=== PATIENT | female | born 1970 | race Caucasian/White ===

== ENCOUNTER → 2018-04-24 11:41 | Outpatient (CLI) | payer OTHER, MEDICAID, SELFPAY ==
--- NOTE | 2018-04-24 | DI.MG.S_ITS ---
BILATERAL DIGITAL SCREENING MAMMOGRAM 3D/2D WITH CAD: 04/24/2018 CLINICAL: Baseline exam. Routine screening. No prior exams were available for comparison. The tissue of both breasts is heterogeneously dense. This may lower the sensitivity of mammography. Current study was also evaluated with a Computer Aided Detection (CAD) system. No significant masses, calcifications, or other findings are seen in either breast. IMPRESSION: NEGATIVE There is no mammographic evidence of malignancy. A 1 year screening mammogram is recommended. This exam was interpreted at Station ID: [id number]. NOTE: For mammograms, a report in lay terms will be sent to the patient. Approximately 15% of breast malignancies will not be visualized mammographically. In the management of a palpable breast mass, a negative mammogram must not discourage biopsy of a clinically suspicious lesion. Electronically Signed By: Leroy rea/ami:04/24/2018 16:29:46 letter sent: Normal Exam ACR BI-RADS Category 1: Negative [id number]
== END ==
PROVIDERS: PCP Family Medicine; Visit Provider Naturopath
DX: Z12.31 Encounter for screening mammogram for malignant neoplasm of breast (principal)
CPT/HCPCS: 77063; 77067

== ENCOUNTER 2019-08-14 09:30 | Outpatient (RCR) | payer BC, MEDICAID, OTHER, SELFPAY ==
--- NOTE | 2017-06-27 07:44 | ST.OPTN ---
On June 27, 2017 our therapy services consisting of Speech, Occupational, and Physical therapy transitioned from [employer] electronic documentation system to a new [employer] electronic system. All documentation prior to June 27 can be found under [employer] saved data. From June 27 forward, all medical record documentation will be in [employer] 6.1.
--- NOTE | 2018-07-24 11:17 | ST.OPTN ---
Care Team Visit Care Team Role Provider Type Pilar Portillo PA-C Family Provider Non-Staff Primary Care Provider Address: [address], [place], [address] Cassie Tilley PA-C Attending Provider Non-Staff Address: [address], [address], [place], [address] REPAIRER CYLINDER HEADS Treatment Note REPAIRER CYLINDER HEADS Treatment Note Start: 06/27/17 09:38 Freq: Status: Active Protocol: Document 07/17/18 17:18 JUAN LUIS (Rec: 07/18/18 18:30 JUAN LUIS [id number]) Speech Pathology Treatment Note Session Time Visit Start Time 15:30 Visit Stop Time 16:25 Total Visit Minutes 55 Visit Information Visit Number 06/06 Plan of Care Dates 07/17/18 - 10/10/18 Insurance Information [facility] Setting Treatment Setting Outpatient Care Visit Type Note Type Progress Note Next Note Type Next Note Type Treatment Note General Information General Information 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 She was hosptitalized at [facility] ([place], [place]) from August 07-2014; then [facility]) from August 20 - Oct 01, 2014. She received outpatient ST and PT services at [facility] from Nov- Oct 2014, after which she relocated to be closer to family. She returned to [facility] and resuced ST services targeting ongoing mild cognitive deficits on 2016. Subjective Observations/Patient Presentation Pt arrived on time after having received vision therapy in [place]. She was fatigued but able to participate in treatment. She provided the REPAIRER CYLINDER HEADS with a list of ongoing concerns and complaints around memory, attention, word recall, and executive function skills, as well as significant interference from emotions and fatigue in her ability to perform daily and professional tasks. Chief Complaint(s) Language Cognitive Rehab Expectation/Goals: Patient Goals Improve oral expression, cogntive communication skills to return to work Patient Knowledge/Awareness of REPAIRER CYLINDER HEADS Role Excellent in Treatment Parent/Caretake Knowledge/Awareness of Excellent REPAIRER CYLINDER HEADS Role in Treatment Comment HEP inconsistent depending on stress levels from other responsibilities Objective Short Term Goals 1. Complex divided/selective attention tasks w/ 80% acc. 2. Visuospatial tasks of moderate complexity w/ 90% acc . DISCONTINUE; PT SEEKING VISION THERAPY 3. Given information of moderate length in writing and using memory strategies as needed, recall orozco concepts and details after 10-min delay w/ 80% acc. NEW GOAL: Pt will incorporate at least 3 strategies targeted over treatment course (e.g., Time Pressure Management, memory, word-recall strategies ) in 70% of opportunities in her functional environment over duration of 1 month to increase independence and carryover of targets, as measured by pt report and clinician judgment. NEW GOAL: Using stimuli/tasks from within her functional environment, the pt will create 3 exercises reflecting therapeutic goals (e.g., recalling 4 shopping list items using internal memory strategies) to increase independence with HEP and long -term rehabilitation, as measured by pt report and clinician judgment. Half-Way Goals 1. Complete complex visuospatial tasks w/ 80% acc to increase mental flexibility . DISCONTINUE; PT SEEKING VISION THERAPY 2. Perform complex functional selective attention tasks of moderate-high levels of difficulty (e.g., giving instructions to complex tasks) with 80% acc to increase ability to communicate effectively under pressure and return to work as per PLOF. 3. Given info of moderate complexity in writing and using memory strategies as needed, recall orozco concepts and details after 10-min delay w/ 90% acc. 4. The pt will identify at least 3 strategies targeted in treatment that she incorporates into functional activities in 70% or more opportunities to return to PLOF and increase independence of rehabilitation process/ progress. Treatment Activities Consulted with pt RE her concerns. Skilled education and feedback was provided, including review of various strategies and exercises that have been targeted in tx to date to address these and similar challenges. These were outlined orally and in writing, and the pt was highly participatory in the discussion, providing feedback on strengths and weaknesses in following through on them in her functional practice. Instruction was provided in using functional objects and tasks in her home/social environment to create exercises around these skills and to increase her independence in her rehabilitation process. She verbalized understanding of instruction as well as necessity for consistent practice to improve skills. Recommended the pt connect with a TBI support group and network to find another individual with TBI who may provide and benefit from mutual support and accountability to the pt to promote follow-through of HEP targets and carryover of tasks /skills. She was in agreement with this and identified an upcoming [facility] event as an opportunity to initiate this. Assessment Patient Response to Treatment Good Rehab Potential Good Impairments Identified Cognitive-Linguistic Skills Expressive Language Memory - Short Term Memory - Working Receptive Language Progress Towards Goals Slow Progress Assessment of Overall Progress Improving Assessment of Improvement While Deon has progressed in many areas over the course of treatment, she continues to struggle with effects of her TBI in areas of memory, attention, executive function, word recall, and effects of emotions and fatigue. She is easily distracted, has difficulty tracking information in conversations and in daily tasks, and relies heavily on external memory tools. She has been successful in creating daily schedules but not successful in following through on such plans. She is easily overwhelmed by stress, emotions, and fatigue and would benefit from professional mental health counseling. In order to continue rehabilitative progress in light of limited benefits for skilled intervention, independence of practice and ability to create practice tasks from within her functional environment is critical. She would greatly benefit from a support group. She is in agreement with this assessment and these recommendations. She was appreciative of a written list of strategies and exercises that have been targeted over the course of Speech Pathology treatment to help remind and guide her in her home practice . Reviewed with Patient Goals Progress Being Made Home Exercise Program Patient/Caregiver Understanding Excellent Plan Amount of Therapy Recommended 7 Months Comment Once every 4 weeks Length of Session 45 Minutes Treatment Emphasis Next Session Increase independence with home practice Therapeutic Contents Client Education Cognitive-Linguistic Training Expressive Language Training Home Exercise Program Information Processing Reading Comprehension Provided Patient/Caregiver Instruction Home Exercise Program Plan of Care Questions/Concerns Therapy Recommendations Continue with Current Program Suggested Referral Other Other Referrals Psychology; TBI Support Group
--- NOTE | 2018-08-15 17:52 | ST.OPTN ---
Care Team Visit Care Team Role Provider Type Pilar Portillo PA-C Family Provider Non-Staff Primary Care Provider Address: [address], [place], [address] Cassie Tilley PA-C Attending Provider Non-Staff Address: [address], [address], [place], [address] CARBON SETTER Treatment Note CARBON SETTER Treatment Note Start: 06/27/17 09:38 Freq: Status: Active Protocol: Document 08/15/18 17:31 JUAN LUIS (Rec: 08/15/18 17:52 JUAN LUIS [id number]) Speech Pathology Treatment Note Session Time Visit Start Time 13:30 Visit Stop Time 14:25 Total Visit Minutes 55 Visit Information Visit Number 5 Plan of Care Dates 07/17/18 - 10/10/18 Insurance Information [facility] Setting Treatment Setting Outpatient Care Visit Type Note Type Progress Note Next Note Type Next Note Type Treatment Note General Information General Information 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 She was hosptitalized at [facility] ([place], [place]) from August 07-2014; then [facility]) from August 20 - Oct 01, 2014. She received outpatient ST and PT services at [facility] from Nov- Oct 2014, after which she relocated to be closer to family. She returned to [facility] and resuced ST services targeting ongoing mild cognitive deficits on 2016. Subjective Observations/Patient Presentation Pt arrived on time. 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 Specifically, she continues to be easily distracted, leaving tasks incomplete. Chief Complaint(s) Language Cognitive Rehab Expectation/Goals: Patient Goals Improve oral expression, cogntive communication skills to return to work Patient Knowledge/Awareness of CARBON SETTER Role Excellent in Treatment Parent/Caretake Knowledge/Awareness of Excellent CARBON SETTER Role in Treatment Comment HEP inconsistent depending on stress levels from other responsibilities Objective Short Term Goals 1. Complex divided/selective attention tasks w/ 80% acc. 2. Given information of moderate length in writing and using memory strategies as needed, recall orozco concepts and details after 10-min delay w/ 80% acc. 3. Pt will incorporate at least 3 strategies targeted over treatment course (e.g., Time Pressure Management, memory, word-recall strategies ) in 70% of opportunities in her functional environment over duration of 1 month to increase independence and carryover of targets, as measured by pt report and clinician judgment. 4. Using stimuli/tasks from within her functional environment, the pt will create 3 exercises reflecting therapeutic goals (e.g., recalling 4 shopping list items using internal memory strategies) to increase independence with HEP and long -term rehabilitation, as measured by pt report and clinician judgment. Penitentiary Goals 1. Perform complex functional selective attention tasks of moderate-high levels of difficulty (e.g., giving instructions to complex tasks) with 80% acc to increase ability to communicate effectively under pressure and return to work as per PLOF. 2. Given info of moderate complexity in writing and using memory strategies as needed, recall orozco concepts and details after 10-min delay w/ 90% acc. 3. The pt will identify at least 3 strategies targeted in treatment that she incorporates into functional activities in 70% or more opportunities to return to PLOF and increase independence of rehabilitation process/ progress. Treatment Activities Consulted with pt RE her concerns. Skilled education was provided RE cognitive skills required to perform specific tasks and review of HEP tasks that target these skills. Trained pt in N-back memory tasks, visual processing speed and naming tasks. The pt performed concrete (playing card) naming task within normal speeds and 100% accuracy. Given abstract naming task (emotions represented in facial pictures ) and instructions not to repeat the same emotion, she exhibited significantly delayed processing and WFD for synonyms. Accuracy of independent production was 63% , increased to 80% with phonemic cues. Instruction was provided in using functional objects and tasks in her home/social environment to create exercises around these skills and to increase her independence in her rehabilitation process. She verbalized understanding of instruction as well as need for consistent practice to improve skills. Continue to recommend the pt connect with a TBI support group and network to find another individual with TBI who may provide and benefit from mutual support and accountability to the pt to promote follow-through of HEP targets and carryover of tasks /skills. She continues to be in agreement but has not made progress in finding a group that is a reasonable distance from her home. Suggested researching online groups, which this CARBON SETTER will attempt to assist in finding. Assessment Patient Response to Treatment Good Rehab Potential Good Impairments Identified Cognitive-Linguistic Skills Expressive Language Memory - Short Term Memory - Working Receptive Language Progress Towards Goals Slow Progress Assessment of Overall Progress Improving Assessment of Improvement In today's session, Deon exhibited normal naming and visual processing of simple concrete items and significant increased difficulty with abstract stimuli. She was responsive to education regarding therapeutic drill tasks that target specific cognitive skills, as well as information and training in transference of skills to functional tasks and ways to target that in her home practice. While she has progressed in many areas over the course of treatment, she continues to struggle with effects of her TBI in areas of memory, attention, executive function, word recall, and effects of emotions and fatigue. 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 She would benefit from professional mental health counseling and from a TBI support group. She is in agreement with this assessment and these recommendations but struggles to find accessible resources. Continued skilled intervention is medically necessary to increase the pt's independence with rehabilitation tasks, provide ongoing assessment and education to promote carryover of skills from structured therapeutic tasks to less structured functional tasks, and increase her ability to perform tasks necessary to maintain employment and meet her financial needs. Reviewed with Patient Goals Progress Being Made Home Exercise Program Patient/Caregiver Understanding Excellent Plan Amount of Therapy Recommended 6 Months Comment Once every 4 weeks Length of Session 45 Minutes Treatment Emphasis Next Session Increase independence with home practice Therapeutic Contents Client Education Cognitive-Linguistic Training Expressive Language Training Home Exercise Program Information Processing Reading Comprehension Provided Patient/Caregiver Instruction Home Exercise Program Plan of Care Questions/Concerns Therapy Recommendations Continue with Current Program Suggested Referral Other Other Referrals Psychology; TBI Support Group
--- NOTE | 2018-09-26 17:45 | ST.OPTN ---
Care Team Visit Care Team Role Provider Type Pilar Portillo PA-C Family Provider Non-Staff Primary Care Provider Address: [address], [place], [address] Cassie Tilley PA-C Attending Provider Non-Staff Address: [address], [address], [place], [address] LEAD MINER BLASTING Treatment Note LEAD MINER BLASTING Treatment Note Start: 06/27/17 09:38 Freq: Status: Active Protocol: Document 09/24/18 14:57 JUAN LUIS (Rec: 09/24/18 17:49 JUAN LUIS [id number]) Speech Pathology Treatment Note Session Time Visit Start Time 09:32 Visit Stop Time 10:27 Total Visit Minutes 55 Visit Information Visit Number 6 Plan of Care Dates 07/17/18 - 10/10/18 Insurance Information [facility] Setting Treatment Setting Outpatient Care Visit Type Note Type Treatment Note Next Note Type Next Note Type Treatment Note General Information General Information 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 She was hosptitalized at [facility] ([place], [place]) from August 07-2014; then [facility]) from August 20 - Oct 01, 2014. She received outpatient ST and PT services at [facility] from Nov- Oct 2014, after which she relocated to be closer to family. She returned to [facility] and resuced ST services targeting ongoing mild cognitive deficits on 2016. Subjective Observations/Patient Presentation Pt arrived on time. Reported having had mental health assessment last week at [facility], where she is hopeful she will be able to receive Cognitive Behavioral Therapy as well as medicine management. She reported a change in her medications by the Psychologist she met with and that she is experiencing positive results in areas of motivation and organization. She expressed a strong desire to continue Speech Pathology intervention targeting setting and following through on routine and schedule, as she feels with new medicine regimine she may be more successful in past. Chief Complaint(s) Language Cognitive Rehab Expectation/Goals: Patient Goals Improve oral expression, cogntive communication skills to return to work Patient Knowledge/Awareness of LEAD MINER BLASTING Role Excellent in Treatment Parent/Caretake Knowledge/Awareness of Excellent LEAD MINER BLASTING Role in Treatment Comment HEP inconsistent depending on stress levels from other responsibilities Objective Short Term Goals 1. Complex divided/selective attention tasks w/ 80% acc. 2. Given information of moderate length in writing and using memory strategies as needed, recall orozco concepts and details after 10-min delay w/ 80% acc. 3. Pt will incorporate at least 3 strategies targeted over treatment course (e.g., schedule management, memory, word-recall strategies) in 70% of opportunities in her functional environment over duration of 1 month to increase independence and carryover of targets, as measured by pt report and clinician judgment. 4. Using stimuli/tasks from within her functional environment, the pt will create 3 exercises reflecting therapeutic goals (e.g., recalling 4 shopping list items using internal memory strategies) to increase independence with HEP and long -term rehabilitation, as measured by pt report and clinician judgment. Health Underwriter Goals 1. Perform complex functional selective attention tasks of moderate-high levels of difficulty (e.g., giving instructions to complex tasks) with 80% acc to increase ability to communicate effectively under pressure and return to work as per PLOF. 2. Given info of moderate complexity in writing and using memory strategies as needed, recall orozco concepts and details after 10-min delay w/ 90% acc. 3. The pt will identify at least 3 strategies targeted in treatment that she incorporates into functional activities in 70% or more opportunities to return to PLOF and increase independence of rehabilitation process/ progress. Treatment Activities Re-education and training provided in strategies to establish and adhere to daily routines and schedule to increase management of personal and professional responsibilities. Given the SMART goal setting tool ( Specific, Measurable, Attainable, Realistic, Timely) , the pt established 2 goals related to setting and keeping a daily routine of tracking/ managing responsibilities as well as emotional levels/ responses that may support or interfere with her ability to adhere to the schedule. Agreed the pt would report via email to the Clinician 2x/wk with her progress of following daily routine via submittal of tracking template in order to increase accountability, follow-through, and carryover. Assessment Patient Response to Treatment Good Rehab Potential Good Impairments Identified Cognitive-Linguistic Skills Expressive Language Memory - Short Term Memory - Working Receptive Language Progress Towards Goals Slow Progress Assessment of Overall Progress Improving Assessment of Improvement The pt reported improvement in motivation and completion of tasks important to her (e.g., completing Physical Therapy exercises and engaging in her community) with recent changes in medication. She also exhibits increased motivation to resume skilled intervention targeting establishing and following through on daily schedule/routine, which are foundational to improve her abilty to manage multiple responsibilities and gain/ maintain independence and resume professional responsibilities. 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 Reviewed with Patient Goals Progress Being Made Home Exercise Program Patient/Caregiver Understanding Excellent Plan Amount of Therapy Recommended 6 Months Comment Once every 4 weeks Length of Session 45 Minutes Treatment Emphasis Next Session Increase independence with home practice Therapeutic Contents Client Education Cognitive-Linguistic Training Expressive Language Training Home Exercise Program Information Processing Reading Comprehension Provided Patient/Caregiver Instruction Home Exercise Program Plan of Care Questions/Concerns Therapy Recommendations Continue with Current Program Suggested Referral Other Other Referrals Psychology; TBI Support Group
--- NOTE | 2018-10-30 14:26 | ST.OPTN ---
Visit Care Team Role Provider Type Pilar Portillo PA-C Family Provider Non-Staff Primary Care Provider Address: [address], [place], [address] Cassie Tilley PA-C Attending Provider Non-Staff Address: [address], [address], [place], [address] IT INVESTMENT/PORTFOLIO MANAGER Treatment Note IT INVESTMENT/PORTFOLIO MANAGER Treatment Note Start: 06/27/17 09:38 Freq: Status: Active Protocol: Document 10/30/18 13:38 JUAN LUIS (Rec: 10/30/18 14:26 JUAN LUIS [email or web address]) Speech Pathology Treatment Note Session Time Visit Start Time 09:30 Visit Stop Time 10:22 Total Visit Minutes 52 Visit Information Visit Number 7 Plan of Care Dates 10/30/18 - 04/30/19 Insurance Information [facility] Setting Treatment Setting Outpatient Care Visit Type Note Type Treatment Note Next Note Type Next Note Type Treatment Note General Information General Information 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 She was hosptitalized at [facility] ([place], [place]) from August 07-2014; then [facility]) from August 20 - Oct 01, 2014. She received outpatient ST and PT services at [facility] from Nov- Oct 2014, after which she relocated to be closer to [facility] She returned to [facility] and resuced ST services targeting ongoing mild cognitive deficits on 2016. Subjective Observations/Patient Presentation Pt arrived on time. She continues to be seen for mental health therapy/ medication management at [facility]. She is also receiving counseling on [facility], and she expressed being very happy with this new therapist. 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 Chief Complaint(s) Language,Cognitive Rehab Expectation/Goals: Patient Goals Improve oral expression, cogntive communication skills to return to work Patient Knowledge/Awareness of IT INVESTMENT/PORTFOLIO MANAGER Role Excellent in Treatment Parent/Caretake Knowledge/Awareness of Excellent IT INVESTMENT/PORTFOLIO MANAGER Role in Treatment Comment HEP inconsistent depending on stress levels from other responsibilities Objective Short Term Goals 1. Complex divided/selective attention tasks w/ 80% acc. 2. Given information of moderate length in writing and using memory strategies as needed, recall orozco concepts and details after 10-min delay w/ 80% acc. 3. Pt will incorporate at least 3 strategies targeted over treatment course (e.g., schedule management, memory, word-recall strategies) in 70% of opportunities in her functional environment over duration of 1 month to increase independence and carryover of targets, as measured by pt report and clinician judgment. 4. Using stimuli/tasks from within her functional environment, the pt will create 3 exercises reflecting therapeutic goals (e.g., recalling 4 shopping list items using internal memory strategies) to increase independence with HEP and long -term rehabilitation, as measured by pt report and clinician judgment. Lan/Wan Engineer Goals 1. Perform complex functional selective attention tasks of moderate-high levels of difficulty (e.g., giving instructions to complex tasks) with 80% acc to increase ability to communicate effectively under pressure and return to work as per PLOF. 2. Given info of moderate complexity in writing and using memory strategies as needed, recall orozco concepts and details after 10-min delay w/ 90% acc. 3. The pt will identify at least 3 strategies targeted in treatment that she incorporates into functional activities in 70% or more opportunities to return to PLOF and increase independence of rehabilitation process/ progress. Treatment Activities Scheduling: Deon presented a daily journal in which she has rated her ability to set and follow-through on a daily schedule with 75% accuracy. Days in which she did not complete the journal were noted with Practice, which she reported represented days in which she was too tired and overwhelmed by soccer practice to complete the journal. 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 Next, she identified areas of ongoing challenge. Given 2 consistently challenging situations identified by the pt (i.e., navigating unexpected conversations with coaching staff and having word -finding difficulties while talking to her team), Deon identified current thought patterns and/or actions that frequently occur in these situations that have perpetuated, rather than reduced, the cognitive challenges. Trained pt in methods of reframing thoughts to reduce interfering negative self-talk and actions that draw attention to her TBI deficits vs the situation at hand. Then trained pt in developing go- to statements which she can practice and use in the moment to navigate such situations more efficiently and effectively without drawing unnecessary attention to her TBI deficits, which she feels undermine her authority and ability to perform her job. Given this training, Deon developed 2 go-to statements to stay on-task with her coaches. Skilled feedback and education RE the need to incorporate this exercise into her HEP was provided. She verbalized understanding and intention to complete this problem-solving task 1-2x/wk. Assessment Patient Response to Treatment Good Rehab Potential Good Impairments Identified Cognitive-Linguistic Skills, Expressive Language,Memory - Short Term,Memory - Working, Receptive Language Progress Towards Goals Slow Progress Assessment of Overall Progress Improving Assessment of Improvement Deon is successfully employing problem-solving strategies, including setting clear boundaries with and delegating tasks to her pharmacy innovation assistant coaches. 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 Additionally, she is making progress in setting and following through on daily schedules. Fatigue and increased cognitive loads continue to impact her ability to complete these tasks. Word-finding difficulties and unexpected complex conversations continue to occur in the moment and interfere with Deon's ability to carry out planned tasks. She was responsive to ongoing development of problem-solving strategies to assist in managing these [id number] moment situations and to reduce her tendency to draw attention to her brain injury. 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 Reviewed with Patient Goals,Progress Being Made,Home Exercise Program Patient/Caregiver Understanding Excellent Plan Comment Once every 4 weeks Therapeutic Contents Client Education,Cognitive- Linguistic Training,Expressive Language Training,Home Exercise Program,Information Processing,Reading Comprehension Provided Patient/Caregiver Instruction Home Exercise Program,Plan of Care,Questions/Concerns Therapy Recommendations Continue with Current Program Suggested Referral Other Other Referrals Psychology; TBI Support Group
--- NOTE | 2018-12-12 17:02 | ST.OPTN ---
Visit Care Team Role Provider Type Pilar Portillo PA-C Family Provider Non-Staff Primary Care Provider Address: [address], [place], [address] Cassie Tilley PA-C Attending Provider Non-Staff Address: [address], [address], [place], [address] STOCK BROKER Treatment Note STOCK BROKER Treatment Note Start: 06/27/17 09:38 Freq: Status: Active Protocol: Document 12/12/18 16:42 JUAN LUIS (Rec: 12/12/18 17:02 JUAN LUIS [id number]) Speech Pathology Treatment Note Session Time Visit Start Time 09:30 Visit Stop Time 10:40 Total Visit Minutes 40 Visit Information Visit Number 8 Plan of Care Dates 10/30/18 - 04/30/19 Insurance Information [facility] Setting Treatment Setting Outpatient Care Visit Type Note Type Treatment Note Next Note Type Next Note Type Treatment Note General Information General Information 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 She was hosptitalized at [facility] ([place], [place]) from August 07-2014; then [facility]) from August 20 - Oct 01, 2014. She received outpatient ST and PT services at [facility] from Nov- Oct 2014, after which she relocated to be closer to hospital for behavioral medicine. She returned to [facility] and resuced ST services targeting ongoing mild cognitive deficits on 2016. Subjective Observations/Patient Presentation Pt arrived on time and left 5 min early to catch [place] ferry. She continues to be seen for psychiatric medication management at [facility] but is not entirely happy there and is considering obtaining second opinion about medication choices. She is also receiving counseling on [facility] she expressed being very happy with this therapist, whom she sees 3x/mo. Deon reported multiple major life events occurring within the last 2 months including deaths of close friends and family, marriages of family members, and births within her [place] of close friends. These events have resulted in frequent travel for her and have been a source of extreme emotional challenges. She reported significant challenge managing emotions, energy, decision making, and motivation to participate with many aspects of life including exercise, housekeeping, etc. Primarily Deon expressed a sense of deep grief. Chief Complaint(s) Language,Cognitive Rehab Expectation/Goals: Patient Goals Improve oral expression, cogntive communication skills to return to work Patient Knowledge/Awareness of STOCK BROKER Role Excellent in Treatment Parent/Caretake Knowledge/Awareness of Excellent STOCK BROKER Role in Treatment Comment HEP inconsistent depending on stress levels from other responsibilities Objective Short Term Goals 1. Complex divided/selective attention tasks w/ 80% acc. 2. Given information of moderate length in writing and using memory strategies as needed, recall orozco concepts and details after 10-min delay w/ 80% acc. 3. Pt will incorporate at least 3 strategies targeted over treatment course (e.g., schedule management, memory, word-recall strategies) in 70% of opportunities in her functional environment over duration of 1 month to increase independence and carryover of targets, as measured by pt report and clinician judgment. 4. Using stimuli/tasks from within her functional environment, the pt will create 3 exercises reflecting therapeutic goals (e.g., recalling 4 shopping list items using internal memory strategies) to increase independence with HEP and long -term rehabilitation, as measured by pt report and clinician judgment. Sternman Goals 1. Perform complex functional selective attention tasks of moderate-high levels of difficulty (e.g., giving instructions to complex tasks) with 80% acc to increase ability to communicate effectively under pressure and return to work as per PLOF. 2. Given info of moderate complexity in writing and using memory strategies as needed, recall orozco concepts and details after 10-min delay w/ 90% acc. 3. The pt will identify at least 3 strategies targeted in treatment that she incorporates into functional activities in 70% or more opportunities to return to PLOF and increase independence of rehabilitation process/ progress. Treatment Activities Reviewed targets of tx from last session. Deon reported limited follow-through secondary to recent life events outlined above. 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 Tomorrow is the next game, and she expressed intention to follow up with appropriate personnel to ensure changes are implemented. Skilled feedback and education was provided with recommendations for modification of tx targets from last session. Agreed to simplify task to daily identification of one goal per day with accountability to STOCK BROKER 4x/wk via a simple text indicating whether or not she had followed through. The goal of this modification is to keep the pt on task with treatment targets/goals of developing and managing her daily schedule without increasing stress and feelings of overwhelm during this time when she is grieving and attempting to manage her emotions in the presence of so many life changes. Assessment Patient Response to Treatment Good Rehab Potential Good Impairments Identified Cognitive-Linguistic Skills, Expressive Language,Memory - Short Term,Memory - Working, Receptive Language Progress Towards Goals Slow Progress,Delayed Progress Assessment of Overall Progress Improving Assessment of Improvement Deon is successfully employing problem-solving strategies, including setting clear boundaries with soccer staff and identifying and mitigating environmental distractors in order to perform her professional responsibilities. She has experienced a set-back in progress RE setting and following through on daily schedules d/t multiple major life events. Fatigue and increased emotional loads continue to impact her ability to complete these tasks. She continues to work with mental health professionals to manage emotions. No significant progress in developing go-to statements to aid with WFD; however, Deon did express increased ability to stop and give herself time to find words as opposed to making statements that draw attention to effects of TBI, which is good progress. Reviewed with Patient Goals,Progress Being Made,Home Exercise Program Patient/Caregiver Understanding Excellent Plan Comment Once every 4 weeks Treatment Emphasis Next Session Follow-up on go-to statements to reduce WFD; daily schedule. Therapeutic Contents Client Education,Cognitive- Linguistic Training,Expressive Language Training,Home Exercise Program,Information Processing,Reading Comprehension Provided Patient/Caregiver Instruction Home Exercise Program,Plan of Care,Questions/Concerns Therapy Recommendations Continue with Current Program Suggested Referral Other Other Referrals Psychology; TBI Support Group
--- NOTE | 2019-01-02 11:41 | ST.OPTN ---
Visit Care Team Role Provider Type Pilar Portillo PA-C Family Provider Non-Staff Primary Care Provider Address: [address], [place], [address] Cassie Tilley PA-C Attending Provider Non-Staff Address: [address], [address], [place], [address] AIRLINE CAPTAIN Treatment Note AIRLINE CAPTAIN Treatment Note Start: 06/27/17 09:38 Freq: Status: Active Protocol: Document 01/01/19 10:52 JUAN LUIS (Rec: 01/02/19 11:41 JUAN LUIS [id number]) Speech Pathology Treatment Note Session Time Visit Start Time 12:30 Visit Stop Time 13:20 Total Visit Minutes 50 Visit Information Visit Number 9 Plan of Care Dates 10/30/18 - 04/30/19 Insurance Information [facility] Setting Treatment Setting Outpatient Care Visit Type Note Type Treatment Note Next Note Type Next Note Type Treatment Note General Information General Information 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 She was hosptitalized at [facility] ([place], [place]) from August 07-2014; then [facility]) from August 20 - Oct 01, 2014. She received outpatient ST and PT services at [facility] from Nov- Oct 2014, after which she relocated to be closer to family. She returned to [facility] and resuced ST services targeting ongoing mild cognitive deficits on 2016. Subjective Observations/Patient Presentation Pt arrived on time. Reported end of soccer season and expectation for stress levels to decline, allowing her to focus more attention on other aspects of life and work. Chief Complaint(s) Language,Cognitive Rehab Expectation/Goals: Patient Goals Improve oral expression, cogntive communication skills to return to work Patient Knowledge/Awareness of AIRLINE CAPTAIN Role Excellent in Treatment Parent/Caretake Knowledge/Awareness of Excellent AIRLINE CAPTAIN Role in Treatment Comment HEP inconsistent depending on stress levels from other responsibilities Objective Short Term Goals 1. Complex divided/selective attention tasks w/ 80% acc. 2. Given information of moderate length in writing and using memory strategies as needed, recall orozco concepts and details after 10-min delay w/ 80% acc. 3. Pt will incorporate at least 3 strategies targeted over treatment course (e.g., schedule management, memory, word-recall strategies) in 70% of opportunities in her functional environment over duration of 1 month to increase independence and carryover of targets, as measured by pt report and clinician judgment. 4. Using stimuli/tasks from within her functional environment, the pt will create 3 exercises reflecting therapeutic goals (e.g., recalling 4 shopping list items using internal memory strategies) to increase independence with HEP and long -term rehabilitation, as measured by pt report and clinician judgment. Nursing Home Goals 1. Perform complex functional selective attention tasks of moderate-high levels of difficulty (e.g., giving instructions to complex tasks) with 80% acc to increase ability to communicate effectively under pressure and return to work as per PLOF. 2. Given info of moderate complexity in writing and using memory strategies as needed, recall orozco concepts and details after 10-min delay w/ 90% acc. 3. The pt will identify at least 3 strategies targeted in treatment that she incorporates into functional activities in 70% or more opportunities to return to PLOF and increase independence of rehabilitation process/ progress. Treatment Activities Consulted with pt RE treatment goals. Deon reported that she continues to effectively employ word recall strategies and establishing boundaries with others. Compliance with HEP task established at last session related to setting and managing her schedule has been ~45% consistency; will continue this task to increase consistency and carryover of schedule management strategies . Deon reported continuing with difficulty reading, which she attributes to vision deficits that make it difficult to accurately see and attend to written text. This would best be addressed by Opthamologist/ Vision Therapist, which is recommended but for which the pt has limited insurance benefits and financial resources. Deon reported improved ability over last 6 or more months to manage external distractors which enable her to better complete functional tasks. However, she continues to struggle with selective and divided attention when in the presence of auditory and visual distractors which she cannot control. Skilled education was provided RE principles of neuroplasticity as related to need for home practice and goals aimed at increasing Deon's independence with her cognitive rehab. Instruction was provided RE recognizing and/or independently creating exercises targeting tx goals. Deon identified 3 functional tasks that require selective/ divided attention and/or reading. With min verbal prompts, she identified 2 ways in which she could increase the challenge in these tasks in order to improve skills. Feedback was provided. Deon reported that follow-through continues to be her biggest challenge and is typically interfered with by fatigue, stress or emotions. Emphasized to the pt the necessity of follow-through to make gains in cognitive rehab. She verbalized understanding. Assessment Patient Response to Treatment Good Rehab Potential Good Impairments Identified Cognitive-Linguistic Skills, Expressive Language,Memory - Short Term,Memory - Working, Receptive Language Progress Towards Goals Slow Progress,Delayed Progress Assessment of Overall Progress Improving Assessment of Improvement Progress is being made in integration of treatment targets/strategies into functional tasks. Deon demonstrated understanding of ways in which to create cognitive exercises from daily activities to increase her independence in the ongoing rehabilitation process. Her greatest area of challenge remains setting and following through on her daily schedule. She verbalized understanding of the importance of this to continue both cognitive rehab and skilled intervention. Reviewed with Patient Goals,Progress Being Made,Home Exercise Program Patient/Caregiver Understanding Excellent Plan Comment Once every 4 weeks Therapeutic Contents Client Education,Cognitive- Linguistic Training,Expressive Language Training,Home Exercise Program,Information Processing,Reading Comprehension Provided Patient/Caregiver Instruction Home Exercise Program,Plan of Care,Questions/Concerns Therapy Recommendations Continue with Current Program Suggested Referral Other Other Referrals Psychology; TBI Support Group
--- NOTE | 2019-01-30 17:12 | ST.OPTN ---
Visit Care Team Role Provider Type Pilar Portillo PA-C Family Provider Non-Staff Primary Care Provider Address: [address], [place], [address] Cassie Tilley PA-C Attending Provider Non-Staff Address: [address], [address], [place], [address] ELEVATOR OPERATOR SERVICE Treatment Note ELEVATOR OPERATOR SERVICE Treatment Note Start: 06/27/17 09:38 Freq: Status: Active Protocol: Document 01/30/19 12:15 JUAN LUIS (Rec: 01/30/19 12:40 JUAN LUIS [id number]) Speech Pathology Treatment Note Session Time Visit Start Time 09:25 Visit Stop Time 10:10 Total Visit Minutes 45 Visit Information Visit Number 10 Plan of Care Dates 10/30/18 - 04/30/19 Insurance Information 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 She was hosptitalized at [facility] ([place], [place]) from August 07-2014; then [facility]) from August 20 - Oct 01, 2014. She received outpatient ST and PT services at [facility] from Nov- Oct 2014, after which she relocated to be closer to family. She returned to [facility] and resuced ST services targeting ongoing mild cognitive deficits on 2016. Subjective Observations/Patient Presentation Pt arrived on time. Reported difficulty managing interruptions during conversation as they distract her from the original topic. Chief Complaint(s) Language,Cognitive Rehab Expectation/Goals: Patient Goals Improve oral expression, cogntive communication skills to return to work Patient Knowledge/Awareness of ELEVATOR OPERATOR SERVICE Role Excellent in Treatment Parent/Caretake Knowledge/Awareness of Excellent ELEVATOR OPERATOR SERVICE Role in Treatment Comment HEP inconsistent depending on stress levels from other responsibilities Objective Short Term Goals 1. Complex divided/selective attention tasks w/ 80% acc. 2. Given information of moderate length in writing and using memory strategies as needed, recall orozco concepts and details after 10-min delay w/ 80% acc. 3. Pt will incorporate at least 3 strategies targeted over treatment course (e.g., schedule management, memory, word-recall strategies) in 70% of opportunities in her functional environment over duration of 1 month to increase independence and carryover of targets, as measured by pt report and clinician judgment. 4. Using stimuli/tasks from within her functional environment, the pt will create 3 exercises reflecting therapeutic goals (e.g., recalling 4 shopping list items using internal memory strategies) to increase independence with HEP and long -term rehabilitation, as measured by pt report and clinician judgment. Criminal Attorney Goals 1. Perform complex functional selective attention tasks of moderate-high levels of difficulty (e.g., giving instructions to complex tasks) with 80% acc to increase ability to communicate effectively under pressure and return to work as per PLOF. 2. Given info of moderate complexity in writing and using memory strategies as needed, recall orozco concepts and details after 10-min delay w/ 90% acc. 3. The pt will identify at least 3 strategies targeted in treatment that she incorporates into functional activities in 70% or more opportunities to return to PLOF and increase independence of rehabilitation process/ progress. Treatment Activities Daily Schedule: The pt has been tracking her daily progress in setting one essential daily goal and completing it. She has consistently completed these tasks, as demonstrated by a daily journal. Mental flexibility: Pt completed Stroop test improving from 6 correct items to 20 correct items in 60 sec . She completed Color Match task via [employer] cognitive training albert with 88-94% accuracy. Skilled feedback provided RE alternating attention and mental flexibility in conversations containing interruptions. Discussed developing go-to statements to pragmatically stop interruptions before they derail the pt's thought process. Deon stated that her responses to others have sometimes resulted in others refraining from further interaction. She was responsive to developing statements ahead of time in order to manage the situation respectfully to conversation partners while preventing her from feeling the pressure to respond spontaneously. Education/feedback also provided RE neuroplasticity and need for exposure to stimuli to improve cognitive skills. Deon indicated that, now that soccer season is over , she does not interract with others very much and mostly stays home. Recommended choosing social interractions 2-3x/wk in order to maintain and/or improve interpersonal and cognitive skills, particularly tracking conversation and attention skills. Further recommended reading and completion of cognitive training exercises via apps (e.g., [employer], [employer]), as well as continuing to plan and track adherence to daily schedule. She verbalized understanding and agreement. Assessment Patient Response to Treatment Good Rehab Potential Good Impairments Identified Cognitive-Linguistic Skills, Expressive Language,Memory - Short Term,Memory - Working, Receptive Language Progress Towards Goals Slow Progress,Delayed Progress Assessment of Overall Progress Improving Assessment of Improvement Deon is improving in establishing and following through on a daily schedule. Will continue task of daily tracking to promote good carryover and establishing habits. Deon exhibited initial difficulty with Stroop test but improved accuracy rapidly. She demonstrated strong mental flexibility with additional structured therapeutic tasks, which is not uncommon for her. Per ELEVATOR OPERATOR SERVICE observations and pt reports, Deon has greater difficulty with mental flexibility during functional tasks that involve interaction with others, which she tends to avoid for that reason. She was receptive to feedback reviewing strategies previously targeted in treatment and verbalized understanding of their goals and relation to principles of neuroplasticity. Reviewed with Patient Goals,Progress Being Made,Home Exercise Program Patient/Caregiver Understanding Excellent Plan Comment Once every 4 weeks Therapeutic Contents Client Education,Cognitive- Linguistic Training,Expressive Language Training,Home Exercise Program,Information Processing,Reading Comprehension Provided Patient/Caregiver Instruction Home Exercise Program,Plan of Care,Questions/Concerns Therapy Recommendations Continue with Current Program Suggested Referral Other Other Referrals Psychology; TBI Support Group
--- NOTE | 2019-02-14 11:28 | ST.OPTN ---
Visit Care Team Role Provider Type Pilar Portillo PA-C Family Provider Non-Staff Primary Care Provider Address: [address], [place], [address] Cassie Tilley PA-C Attending Provider Non-Staff Address: [address], [address], [place], [address] CPHT Treatment Note CPHT Treatment Note Start: 06/27/17 09:38 Freq: Status: Active Protocol: Document 02/14/19 10:52 JUAN LUIS (Rec: 02/14/19 11:28 JUAN LUIS [id number]) Speech Pathology Treatment Note Session Time Visit Start Time 09:25 Visit Stop Time 10:10 Total Visit Minutes 45 Visit Information Visit Number 11 Plan of Care Dates 10/30/18 - 04/30/19 Insurance Information [facility] Setting Treatment Setting Outpatient Care Visit Type Note Type Treatment Note Next Note Type Next Note Type Treatment Note General Information General Information 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 She was hosptitalized at [facility] ([place], [place]) from August 07-2014; then [facility]) from August 20 - Oct 01, 2014. She received outpatient ST and PT services at [facility] from Nov- Oct 2014, after which she relocated to be closer to [facility]. She returned to [facility] and resuced ST services targeting ongoing mild cognitive deficits on 2016. Subjective Observations/Patient Presentation Pt arrived on time. She brought notes related to her current daily schedule and her goals around this. She reported that she has not been sleeping well, sometimes awake until 3-4:00 in the morning, and has had poor appetite resulting in primarily snacking minimally throughout the day. She expressed concern that she is not eating enough and suspects both sleep and appetite changes may be medication side effects. She stated she is working with her doctor on these issues. Chief Complaint(s) Language,Cognitive Rehab Expectation/Goals: Patient Goals Improve oral expression, cogntive communication skills to return to work Patient Knowledge/Awareness of CPHT Role Excellent in Treatment Parent/Caretake Knowledge/Awareness of Excellent CPHT Role in Treatment Comment HEP inconsistent depending on stress levels from other responsibilities Objective Short Term Goals 1. Complex divided/selective attention tasks w/ 80% acc. 2. Given information of moderate length in writing and using memory strategies as needed, recall orozco concepts and details after 10-min delay w/ 80% acc. 3. Pt will incorporate at least 3 strategies targeted over treatment course (e.g., schedule management, memory, word-recall strategies) in 70% of opportunities in her functional environment over duration of 1 month to increase independence and carryover of targets, as measured by pt report and clinician judgment. 4. Using stimuli/tasks from within her functional environment, the pt will create 3 exercises reflecting therapeutic goals (e.g., recalling 4 shopping list items using internal memory strategies) to increase independence with HEP and long -term rehabilitation, as measured by pt report and clinician judgment. Senior Care Goals 1. Perform complex functional selective attention tasks of moderate-high levels of difficulty (e.g., giving instructions to complex tasks) with 80% acc to increase ability to communicate effectively under pressure and return to work as per PLOF. 2. Given info of moderate complexity in writing and using memory strategies as needed, recall orozco concepts and details after 10-min delay w/ 90% acc. 3. The pt will identify at least 3 strategies targeted in treatment that she incorporates into functional activities in 70% or more opportunities to return to PLOF and increase independence of rehabilitation process/ progress. Treatment Activities Daily Schedule: The pt has been tracking her daily progress in setting one essential daily goal and completing it. She has consistently completed these tasks, as demonstrated by a daily journal. Collaborated with pt to advance managing her daily schedule by setting and completing 2 activities/ per day. Agreed to target start and end of day activities with goal of 85% completion (~6/7 days/wk): Pt will get up at 6:00 am when she has had a good night's sleep and no later than 9:00 am when she has not slept well overnight; Pt will be in bed by 9:45 each night. The pt will continue to track progress with a daily journal. After the pt has demonstrated compliance/consistency with this schedule for at least 2 consecutive weeks, plan to add consuming 1 complete and healthy meal to the schedule in order to advance daily routines in small increments to prevent feelings of overwhelm and to promote pt success. Attention Skills: Since last session, the pt has incorporated Stroop test into HEP and has advanced to >50 correct items in 60 seconds across 6 color/word choices. She reported observing distractors (e.g., emotions [ excitement, frustration], focusing on the future [i.e., focusing attn on goal vs current function], and environmental activities) and using self-talk strategies to ignore them and stay present with the task, both mentally and physically. Skilled feedback and education was provided RE focused, selective and divided attention skills at play in this task, and carry over of these skills and her observations and strategies to functional tasks . When asked to choose a functional task of importance but which is challenging for her to focus on, the chose art work and activities around her spiritual life. Instructed pt to incorporate either an art project or a spiritual task into her HEP in the same way she has incorporated the Stroop test: observe distractors and use self-talk to maintain presence with/ attention to task. Expressive/Receptive Communication: The pt expressed and demonstrated difficulty understanding instructions for assigned attention task. When attempting to explain her difficulties with understanding, she exhibited significant decline in word recall and formulating sentences to express these abstract concepts, resulting in repetitive incomplete statements and dysfluent speech. She benefited from CPHT intervention and prompts to take a deep breath, let go of technical/clinical language that was not important but which appeared to be adding to the confusion, and from visual presentation of instructions (i.e., a written/ visual diagram of observations and strategies made in Stroop test and same goals for art/ spiritual task). Given this re -presentation of instructions, the pt verbalized understanding and she resumed speech/language that was WNL. Assessment Patient Response to Treatment Good Rehab Potential Good Impairments Identified Cognitive-Linguistic Skills, Expressive Language,Memory - Short Term,Memory - Working, Receptive Language Progress Towards Goals Slow Progress,Delayed Progress Assessment of Overall Progress Improving Assessment of Improvement Deon is improving in establishing and following through on a daily schedule and was participatory in establishing new and realistic goals toward advancing her ability to set/manage a more complex daily routine. She has made excellent progress in completing complex levels of Stroop test, which she finds to be an enjoyable challenge. She has made excellent observations of distractors while completing this task, as well as effective strategies to maintain and improve focus and task accuracy. She was receptive to feedback and instruction for tasks to carry over these same skills to functional activities when presented in visual format with simple oral instruction. When presented orally only, she exhibited significant impairment of auditory comprehension and became agitated and unable to orally explain what she did not understand and needed clarification about, requiring CPHT intervention. This demonstrated the pt's ongoing deficits in expressive/ receptive communication skills with abstract and complex topics, particularly when unfamiliar vocabulary is presented to her, and detrimental impacts of hightened emotions to her completion of functional communication tasks. She was responsive to skilled intervention; however, she was not able to self-manage the episode and is unlikely to recieve the necessary support or intervention from lay persons with whom she interacts in ADLs. This demonstrates her medical need for continued skilled intervention. Reviewed with Patient Goals,Progress Being Made,Home Exercise Program Patient/Caregiver Understanding Excellent Plan Comment Once every 4 weeks Therapeutic Contents Client Education,Cognitive- Linguistic Training,Expressive Language Training,Home Exercise Program,Information Processing,Reading Comprehension Provided Patient/Caregiver Instruction Home Exercise Program,Plan of Care,Questions/Concerns Therapy Recommendations Continue with Current Program Suggested Referral Other Other Referrals Psychology; TBI Support Group
--- NOTE | 2019-03-24 16:58 | ST.OPTN ---
Visit Care Team Role Provider Type Pilar Portillo PA-C Family Provider Non-Staff Primary Care Provider Address: [address], [place], [address] Cassie Tilley PA-C Attending Provider Non-Staff Address: [address], [address], [place], [address] CUTTING AND CREASING PRESS OPERATOR Treatment Note CUTTING AND CREASING PRESS OPERATOR Treatment Note Start: 06/27/17 09:38 Freq: Status: Active Protocol: Document 03/20/19 16:41 JUAN LUIS (Rec: 03/24/19 16:58 JUAN LUIS [id number]) Speech Pathology Treatment Note Session Time Visit Start Time 09:35 Visit Stop Time 10:20 Total Visit Minutes 45 Visit Information Visit Number 12 Plan of Care Dates 10/30/18 - 04/30/19 Insurance Information [facility] Setting Treatment Setting Outpatient Care Visit Type Note Type Treatment Note Next Note Type Next Note Type Treatment Note General Information General Information 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 She was hosptitalized at [facility] ([place], [place]) from August 07-2014; then [facility]) from August 20 - Oct 01, 2014. She received outpatient ST and PT services at [facility] from Nov- Oct 2014, after which she relocated to be [facility]. She returned to [facility] and resuced ST services targeting ongoing mild cognitive deficits on 2016. Subjective Observations/Patient Presentation Pt arrived on time. She brought notes related to her current daily schedule and her goals around this. She reported that she been sleeping better and improving on being consistent with scheduled times to go to bed and to awake, although some inconsistency still occurs. She informed of continued difficulty managing her time/ tasks throughout the day when she is only accountable to herself. She successfully manages time/tasks for which she is accountable to others. Chief Complaint(s) Language,Cognitive Rehab Expectation/Goals: Patient Goals Improve oral expression, cogntive communication skills to return to work Patient Knowledge/Awareness of CUTTING AND CREASING PRESS OPERATOR Role Excellent in Treatment Parent/Caretake Knowledge/Awareness of Excellent CUTTING AND CREASING PRESS OPERATOR Role in Treatment Comment HEP inconsistent depending on stress levels from other responsibilities Objective Short Term Goals 1. Complex divided/selective attention tasks w/ 80% acc. 2. Given information of moderate length in writing and using memory strategies as needed, recall orozco concepts and details after 10-min delay w/ 80% acc. 3. Pt will incorporate at least 3 strategies targeted over treatment course (e.g., schedule management, memory, word-recall strategies) in 70% of opportunities in her functional environment over duration of 1 month to increase independence and carryover of targets, as measured by pt report and clinician judgment. 4. Using stimuli/tasks from within her functional environment, the pt will create 3 exercises reflecting therapeutic goals (e.g., recalling 4 shopping list items using internal memory strategies) to increase independence with HEP and long -term rehabilitation, as measured by pt report and clinician judgment. Prison Goals 1. Perform complex functional selective attention tasks of moderate-high levels of difficulty (e.g., giving instructions to complex tasks) with 80% acc to increase ability to communicate effectively under pressure and return to work as per PLOF. 2. Given info of moderate complexity in writing and using memory strategies as needed, recall orozco concepts and details after 10-min delay w/ 90% acc. 3. The pt will identify at least 3 strategies targeted in treatment that she incorporates into functional activities in 70% or more opportunities to return to PLOF and increase independence of rehabilitation process/ progress. Treatment Activities Collaborated with pt to identify critical tasks that need to be completed in her weekly schedule. Skilled education and feeback provided RE strategies to increase accountability to self and/or others in order to increase likelihood of tasks to be completed and to be completed efficiently (time management). The pt identified tasks important to generating income , maintaining compliance with physical and cognitive rehab HEPs, and socialization. Given these critical tasks, collaborated with pt in ways to establish commitments/ accountability outside herself to assist her in establishing and maintaining a more consistent daily routine, including carpooling with others and signing up for pool time at the [facility], for example. Initially, the pt expressed nervousness and increased anxiety about making such commitments; however, with further discussion and agreement to a 6-wk time limit for these commitments, the pt became more agreeable and less anxious. Assessment Patient Response to Treatment Good Rehab Potential Good Impairments Identified Cognitive-Linguistic Skills, Expressive Language,Memory - Short Term,Memory - Working, Receptive Language Progress Towards Goals Slow Progress,Delayed Progress Assessment of Overall Progress Improving Assessment of Improvement Deon is improving in establishing and following through on a daily schedule and was participatory in establishing new and realistic goals toward advancing her ability to set/manage a more complex daily routine. Although she expressed/ demonstrated initial increased anxiety around making commitments in her schedule, she was responsive to skilled feedback and education RE capitalizing on her strengths (follow-through on commitments to others) to improve in areas of weakness (follow- through on commitments to self ). Reviewed with Patient Goals,Progress Being Made,Home Exercise Program Patient/Caregiver Understanding Excellent Plan Comment Once every 4 weeks Therapeutic Contents Client Education,Cognitive- Linguistic Training,Expressive Language Training,Home Exercise Program,Information Processing,Reading Comprehension Provided Patient/Caregiver Instruction Home Exercise Program,Plan of Care,Questions/Concerns Therapy Recommendations Continue with Current Program Suggested Referral Other Other Referrals Psychology; TBI Support Group
--- NOTE | 2019-04-22 09:09 | ST.OPTN ---
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 OPERATOR Treatment Note DANDY OPERATOR Treatment Note Start: 06/27/17 09:38 Freq: Status: Active Protocol: Document 04/17/19 08:48 JUAN LUIS (Rec: 04/22/19 09:09 JUAN LUIS [id number]) Speech Pathology Treatment Note Session Time Visit Start Time 09:35 Visit Stop Time 10:20 Total Visit Minutes 45 Visit Information Visit Number 13 Plan of Care Dates 10/30/18 - 04/30/19 Insurance Information [facility] Setting Treatment Setting Outpatient Care Visit Type Note Type Treatment Note Next Note Type Next Note Type Treatment Note General Information General Information 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 She was hosptitalized at [facility] ([place], [place]) from August 07-2014; then [facility]) from August 20 - Oct 01, 2014. She received outpatient ST and PT services at [facility] from Nov- Oct 2014, after which she relocated to be closer to [facility]. She returned to [facility] and resuced ST services targeting ongoing mild cognitive deficits on 2016. Subjective Observations/Patient Presentation Pt arrived on time. She brought notes related to her current daily schedule and her goals around this. She reported that writing out her daily schedule has felt like an added task and has not been helpful. Therefore, she has not been doing that but has been more consistent in making mental plans and completing priority tasks. She has also started learning piano, which she finds enjoyable and challenging. Chief Complaint(s) Language,Cognitive Rehab Expectation/Goals: Patient Goals Improve oral expression, cogntive communication skills to return to work Patient Knowledge/Awareness of DANDY OPERATOR Role Excellent in Treatment Parent/Caretake Knowledge/Awareness of Excellent DANDY OPERATOR Role in Treatment Comment HEP inconsistent depending on stress levels from other responsibilities Objective Short Term Goals 1. Complex divided/selective attention tasks w/ 80% acc. 2. Given information of moderate length in writing and using memory strategies as needed, recall orozco concepts and details after 10-min delay w/ 80% acc. 3. Pt will incorporate at least 3 strategies targeted over treatment course (e.g., schedule management, memory, word-recall strategies) in 70% of opportunities in her functional environment over duration of 1 month to increase independence and carryover of targets, as measured by pt report and clinician judgment. 4. Using stimuli/tasks from within her functional environment, the pt will create 3 exercises reflecting therapeutic goals (e.g., recalling 4 shopping list items using internal memory strategies) to increase independence with HEP and long -term rehabilitation, as measured by pt report and clinician judgment. 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 Perform complex functional selective attention tasks of moderate-high levels of difficulty (e.g., giving instructions to complex tasks) with 80% acc to increase ability to communicate effectively under pressure and return to work as per PLOF. 2. Given info of moderate complexity in writing and using memory strategies as needed, recall orozco concepts and details after 10-min delay w/ 90% acc. 3. The pt will identify at least 3 strategies targeted in treatment that she incorporates into functional activities in 70% or more opportunities to return to PLOF and increase independence of rehabilitation process/ progress. Treatment Activities Collaborated with pt RE strategies to ensure priority daily tasks get accomplished. Agreed that a written daily schedule seems to no longer be serving the pt or necessary. Education and skilled feedback provided RE cognitive benefit to learning to play piano, as related to principles of neuroplasticity. The pt identified areas of cognition that were challenged by the task, including alternating and divided attention skills, visuospatial skills, auditory and reading comprehension (pt is learning from both training book and online videos), and short-term and working memory. The pt reported greatest challenge with tracking and recalling written and oral instructions, often requiring repetition and chunking information. The pt also has incorporated self-care tasks that are more structured than those utilized in past, which allow her to complete beneficial tasks without getting lost in them and spending excessive amounts of time that take her away from other tasks. Skilled feedback was provided as related to goals and POC. Assessment Patient Response to Treatment Good Rehab Potential Good Impairments Identified Cognitive-Linguistic Skills, Expressive Language,Memory - Short Term,Memory - Working, Receptive Language Progress Towards Goals Good Progress,Slow Progress Assessment of Overall Progress Improving Assessment of Improvement Deon is improving in establishing and following through on a daily schedule without use of written plan, demonstrating improvement in her ability to independently recall and track priority tasks. She has made some significant changes since last seen, incorporating new tasks that are highly salient to her and also incorporate more structure. This is allowing her to complete daily routines more efficiently and, as a result, complete more of her priority tasks. The saliency of learning to play piano is particularly helpful for training specific cognitive skills such as attention, memory, visuospatial, and auditory/reading comprehension skills. Saliency of these tasks also appears to be improving Deon's accountability to self and ability to follow through on tasks without relying on accountability to others. Will continue to follow up on this important component. Reviewed with Patient Goals,Progress Being Made,Home Exercise Program Patient/Caregiver Understanding Excellent Plan Comment Once every 4 weeks Therapeutic Contents Client Education,Cognitive- Linguistic Training,Expressive Language Training,Home Exercise Program,Information Processing,Reading Comprehension Provided Patient/Caregiver Instruction Home Exercise Program,Plan of Care,Questions/Concerns Therapy Recommendations Continue with Current Program Suggested Referral Other Other Referrals Psychology; TBI Support Group
--- NOTE | 2019-08-14 18:03 | ST.OPTN ---
Visit Care Team Role Provider Type Pilar Portillo PA-C Family Provider Non-Staff Primary Care Provider Address: [address], [place], [address] Cassie Tilley PA-C Attending Provider Non-Staff Address: [address], [address], [place], [address] HEARTH FEEDER Treatment Note HEARTH FEEDER Treatment Note Start: 06/27/17 09:38 Freq: Status: Active Protocol: Document 08/14/19 10:13 JUAN LUIS (Rec: 08/14/19 10:34 JUAN LUIS [id number]) Speech Pathology Treatment Note Session Time Visit Start Time 09:30 Visit Stop Time 10:30 Total Visit Minutes 60 Visit Information Visit Number 13 Plan of Care Dates 10/30/18 - 04/30/19 Insurance Information [facility] Setting Treatment Setting Outpatient Care Visit Type Note Type Discharge Summary General Information General Information 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 She was hosptitalized at [facility] ([place], [place]) from August 07-2014; then [facility]) from August 20 - Oct 01, 2014. She received outpatient ST and PT services at [facility] from Nov- Oct 2014, after which she relocated to be closer to family. She returned to [facility] and resuced ST services targeting ongoing mild cognitive deficits on 2016. Subjective Observations/Patient Presentation Pt returns to outpatient therapy after treatment was delayed d/t COVID-19. She arrived on time and provided updated notes on areas of progress and challenge. Chief Complaint(s) Language,Cognitive Rehab Expectation/Goals: Patient Goals Improve oral expression, cogntive communication skills to return to work Patient Knowledge/Awareness of HEARTH FEEDER Role Excellent in Treatment Parent/Caretake Knowledge/Awareness of Excellent HEARTH FEEDER Role in Treatment Comment HEP inconsistent depending on stress levels from other responsibilities Objective Short Term Goals 1. Complex divided/selective attention tasks w/ 80% acc. MAKING PROGRESS 70% 2. Given information of moderate length in writing and using memory strategies as needed, recall orozco concepts and details after 10-min delay w/ 80% acc. GOAL MET with topics of interest. 3. Pt will incorporate at least 3 strategies targeted over treatment course (e.g., schedule management, memory, word-recall strategies) in 70% of opportunities in her functional environment over duration of 1 month to increase independence and carryover of targets, as measured by pt report and clinician judgment. GOAL MET 4. Using stimuli/tasks from within her functional environment, the pt will create 3 exercises reflecting therapeutic goals (e.g., recalling 4 shopping list items using internal memory strategies) to increase independence with HEP and long -term rehabilitation, as measured by pt report and clinician judgment. 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 Perform complex functional selective attention tasks of moderate-high levels of difficulty (e.g., giving instructions to complex tasks) with 80% acc to increase ability to communicate effectively under pressure and return to work as per PLOF. 2. Given info of moderate complexity in writing and using memory strategies as needed, recall orozco concepts and details after 10-min delay w/ 90% acc. 3. The pt will identify at least 3 strategies targeted in treatment that she incorporates into functional activities in 70% or more opportunities to return to PLOF and increase independence of rehabilitation process/ progress. GOAL MET Treatment Activities Consulted with pt on progress, goals, and POC. Deon reported the following challenges and areas of improvement since last visit: She has assumed significantly more complex tasks around her home involving following written and video instructions with greater ease and endurance. Since the time of [id number] orders related to COVID-19 when she spent much time alone, she finds increased sensitivity to noises and people when in more social settings, although she benefits from attention strategies discussed in treatment. She continues to be inconsistent in following a daily schedule, able to do so for ~4 days at a time. However , she feels she is completing necessary responsibilities and has not missed appointments and other commitments. Deon noted a recurrence of occasional difficulty with spelling and grapheme/phoneme recognition occurring in reading and writing tasks, requiring use of dictionary. She also has noticed occasional forgetfulness usually secondary to attention deficits. Problem Solving: Given areas of forgetfulness concerning kitchen safety, Deon independently identified appropriate solutions. Skilled feedback was provided and plan of action developed targeting change in routine, external memory tools, and internal memory strategies to increase attention, memory and safety. Spelling: Using Perceivant albert and given a collection of letters and minimal cues, the pt assembled target words with 60% accuracy. Skilled feedback provided with recommendation for HEP to target spelling and grapheme/ phoneme processing skills. Pt was agreeable. Discussed with pt POC and progress made over course of treatment. Deon identified a variety of strategies and HEP tasks she is currently using with benefit to completing ADLs and participating in social activities. She verbalized methods to increase challenge of HEP tasks to target further rehabilitation of skills, demonstrating understanding of treatment targets and independence with HEP. Assessment Patient Response to Treatment Good Rehab Potential Good Impairments Identified Cognitive-Linguistic Skills, Expressive Language,Memory - Short Term,Memory - Working, Receptive Language Progress Towards Goals Good Progress,Slow Progress Assessment of Overall Progress Improving Assessment of Improvement Over the course of treatment, Deon has demonstrated significant improvement of cognitive communication skills . She has met most of her goals and has demonstrated independence in modifying her HEP to increase challenge appropriately. While she continues with mild deficits primarily in areas of memory, attention, and organization that impact her daily life, she is living independently and fulfilling commitments and responsibilities. Deon expressed feeling well equipped to continue on this path. Discharge from skilled intervention is appropriate at this time, and the pt was in agreement. Reviewed with Patient Goals,Progress Being Made,Home Exercise Program Patient/Caregiver Understanding Excellent Plan Therapeutic Contents Client Education,Cognitive- Linguistic Training,Expressive Language Training,Home Exercise Program,Information Processing,Reading Comprehension Provided Patient/Caregiver Instruction Home Exercise Program,Plan of Care,Questions/Concerns Therapy Recommendations Discharge to Home Exercise Program
== END 2019-08-20 12:18 ==
LOC: SP 09:30
PROVIDERS: Family Provider Physician Assistant Medical; PCP Physician Assistant Medical; Visit Provider Physician Assistant
DX: R47.89 Other speech disturbances (principal); R41.841 Cognitive communication deficit
CPT/HCPCS: 92507; 97127; 97129; 97130

== ENCOUNTER → 2020-07-28 11:08 | Outpatient (CLI) | payer MEDICARE, MEDICAID, SELFPAY ==
--- NOTE | 2020-07-28 | DI.MG.S_ITS ---
BILATERAL DIGITAL SCREENING MAMMOGRAM 3D/2D WITH CAD: 07/28/2020 CLINICAL: Routine screening. Comparison is made to exam dated: 04/24/2018 [facility]. The tissue of both breasts is heterogeneously dense. This may lower the sensitivity of mammography. Current study was also evaluated with a Computer Aided Detection (CAD) system. There is an oval equal density focal asymmetry with an obscured and circumscribed margin in the right breast at 6 o'clock middle depth. No other significant masses, calcifications, or other findings are seen in either breast. IMPRESSION: INCOMPLETE: NEEDS ADDITIONAL IMAGING EVALUATION The oval equal density focal asymmetry in the right breast is indeterminate. Mediolateral and spot compression views as well as additional views with possible ultrasound are recommended. This exam was interpreted at Station ID: [id number]. NOTE: For mammograms, a report in lay terms will be sent to the patient. Approximately 15% of breast malignancies will not be visualized mammographically. In the management of a palpable breast mass, a negative mammogram must not discourage biopsy of a clinically suspicious lesion. Electronically Signed By: Grant xie/ami:07/28/2020 14:57:57 letter sent: Additional Imaging Needed ACR BI-RADS Category 0: Incomplete [id number]
== END ==
PROVIDERS: Family Provider Physician Assistant Medical; PCP Family Medicine; Referring Provider Family Medicine; Visit Provider Family Medicine
DX: Z12.31 Encounter for screening mammogram for malignant neoplasm of breast (principal); N64.89 Other specified disorders of breast
CPT/HCPCS: 77063; 77067

== ENCOUNTER → 2020-08-19 09:28 | Outpatient (CLI) | payer MEDICARE, MEDICAID, SELFPAY ==
--- NOTE | 2020-08-19 | DI.MG.S_ITS ---
UNILATERAL RIGHT DIGITAL DIAGNOSTIC MAMMOGRAM 3D/2D WITH ADDITIONAL VIEWS: 08/19/2020 CLINICAL: Additional evaluation requested from prior study. Comparison is made to exams dated: 07/28/2020 mammogram and 04/24/2018 [facility]. The tissue of right breast is heterogeneously dense. This may lower the sensitivity of mammography. There is an oval equal density focal asymmetry with an obscured and circumscribed margin in the right breast at 6 o'clock middle depth. This is confirmed in additional views. No other significant masses or calcifications are seen in the breast. IMPRESSION: INCOMPLETE: NEEDS ADDITIONAL IMAGING EVALUATION The 1.2cm oval equal density focal asymmetry in the right breast resembles a cyst and is indeterminate. An ultrasound is recommended for further evaluation and is scheduled to immediately follow this examination. This exam was interpreted at Station ID: [id number]. NOTE: For mammograms, a report in lay terms will be sent to the patient. Approximately 15% of breast malignancies will not be visualized mammographically. In the management of a palpable breast mass, a negative mammogram must not discourage biopsy of a clinically suspicious lesion. Electronically Signed By: Leroy Shepherd M.D. aty/:08/19/2020 10:33:27 ACR BI-RADS Category 0: Incomplete [id number]
--- NOTE | 2020-08-19 09:31 | DI.US.S_ITS ---
ULTRASOUND OF RIGHT BREAST: 08/19/2020 CLINICAL: Patient returns today to evaluate a focal asymmetry in the right breast. Comparison is made to exams dated: 08/19/2020 mammogram, 07/28/2020 mammogram, and 04/24/2018 mammogram - [facility]. Color flow and real-time ultrasound of the right breast were performed. Salas scale images of the real-time examination were reviewed. There is a 1.3 cm x 0.7 cm x 1.2 cm oval cyst in the right breast at 6 o'clock middle depth 6 cm from the nipple. This oval cyst is anechoic with a well-defined boundary and posterior acoustic enhancement. This correlates with mammography findings. Color flow imaging demonstrates that there is no vascularity present. IMPRESSION: BENIGN There is no sonographic evidence of malignancy. The 1.3 cm x 0.7 cm x 1.2 cm oval simple cyst in the right breast is benign. A 1 year screening mammogram is recommended. Findings and recommendations were conveyed to the patient during today's evaluation. This exam was interpreted at Station ID: [id number]. Electronically Signed By: Leroy Shepherd M.D. aty/:08/19/2020 10:35:10 letter sent: Normal Exam Ultrasound BI-RADS: 2 Benign
== END ==
PROVIDERS: Family Provider Physician Assistant Medical; PCP Family Medicine; Referring Provider Family Medicine; Visit Provider Family Medicine
DX: R92.8 Other abnormal and inconclusive findings on diagnostic imaging of breast (principal); N60.01 Solitary cyst of right breast
CPT/HCPCS: 76642; 77065; G0279

== ENCOUNTER → 2020-09-11 11:57 | Outpatient (CLI) | payer MEDICARE, MEDICAID, SELFPAY ==
[2020-09-11 19:53] LABS: COVID19 - ORCAS (NP or Nasal) Negative (Negative)
== END ==
PROVIDERS: Family Provider Physician Assistant Medical; PCP Family Medicine; Visit Provider Family Medicine
DX: J06.9 Acute upper respiratory infection, unspecified (principal); Z20.822 Contact with and (suspected) exposure to COVID-19
CPT/HCPCS: U0003

== ENCOUNTER → 2020-10-30 08:31 | Outpatient (CLI) | payer MEDICARE, MEDICAID, SELFPAY ==
[2020-10-30 21:26] LABS: COVID19 - ORCAS (NP or Nasal) Negative (Negative)
== END ==
PROVIDERS: Family Provider Physician Assistant Medical; PCP Family Medicine; Referring Provider Family Medicine; Visit Provider Family Medicine
DX: Z20.822 Contact with and (suspected) exposure to COVID-19 (principal)
CPT/HCPCS: U0003

== ENCOUNTER → 2021-02-08 10:15 | Outpatient (CLI) | payer MEDICARE, MEDICAID, SELFPAY ==
[2021-02-08 22:09] LABS: COVID19 - ORCAS (NP or Nasal) Negative (Negative)
== END ==
PROVIDERS: Family Provider Physician Assistant Medical; PCP Family Medicine; Visit Provider Family Medicine
DX: Z20.822 Contact with and (suspected) exposure to COVID-19 (principal)
CPT/HCPCS: C9803; U0003

== ENCOUNTER → 2021-03-01 09:18 | Outpatient (CLI) | payer MEDICARE, MEDICAID, SELFPAY ==
[2021-03-01 20:40] LABS: COVID19 - ORCAS (NP or Nasal) Negative (Negative)
== END ==
PROVIDERS: Family Provider Physician Assistant Medical; PCP Family Medicine; Visit Provider Family Medicine
DX: Z20.822 Contact with and (suspected) exposure to COVID-19 (principal)
CPT/HCPCS: C9803; U0003

== ENCOUNTER → 2021-03-12 10:25 | Outpatient (CLI) | payer MEDICARE, MEDICAID, SELFPAY ==
[2021-03-12 19:01] LABS: Add Manual Diff / Slide Review NO; Basophils Absolute Auto 0 /uL (0-100); Basophils Percent Auto 0.9 % (0-2); Eosinophils Absolute Auto 100 /uL (0-450); Eosinophils Percent Auto 2.4 % (2-4); Hematocrit 41.3 % (36-46); Hemoglobin 14.1 g/dL (12.0-16.0); Lymphocytes Absolute Auto 1800 /uL (1100-4500); Lymphocytes Percent Auto 35.6 % (25-40); Mean Corpuscular HGB Conc 34.1 % (30-36); Mean Corpuscular Hemoglobin 31.5 PG (26-34); Mean Corpuscular Volume 92.2 fL (80-100); Monocytes Absolute Auto 400 /uL (0-900); Monocytes Percent Auto 7.5 % (3-14); Neutrophils Absolute Auto 2600 /uL (1500-7000); Neutrophils Percent Auto 53.6 % (50-75); Platelet Count 253 X10^3/uL (150-400); Red Blood Cell Count 4.48 X10^6/uL (4.0-5.2); Red Cell Distribution Width 14.4 % (11.6-14.8); White Blood Cell Count 4.9 X10^3/uL (4.5-11.0)
[2021-03-12 19:19] LABS: Alanine Aminotransferase 28 IU/L (<35); Albumin 4.4 g/dL (3.5-5.0); Albumin Globulin Ratio 1.5 (1.0-2.8); Alkaline Phosphatase 65 U/L (38-126); Aspartate Aminotransferase 32 IU/L (14-36); BUN Creatinine Ratio 17.7 (6-22); Bilirubin Total 0.6 mg/dL (0.2-1.3); Blood Urea Nitrogen 14 mg/dL (7-17); Carbon Dioxide 34 mmol/L (22-32); Chloride 103 mmol/L (98-107); Estimated Glomerular Filt Rate > 60.0 mL/min (>60); Globulin 2.9 g/dL (1.7-4.1); Glucose 101 mg/dL (70-100); HEMOLYSIS < 15 (0-50); Potassium 4.5 mmol/L (3.4-5.1); Sodium 141 mmol/L (137-145); Total Protein 7.3 g/dL (6.3-8.2)
[2021-03-12 19:39] LABS: TSH w/ Reflex to FT4 1.66 uIU/mL (0.47-4.68)
[2021-03-12 19:46] LABS: Cortisol Random 6.84 ug/dL
[2021-03-12 19:49] LABS: Testosterone 29.5 ng/dL (5.71-77.0)
[2021-03-13 08:08] LABS: Insulin Level Total 7.2 uIU/mL (2.6-24.9)
[2021-03-17 21:44] LABS: Estrogen 350 pg/mL (.)
== END ==
PROVIDERS: Family Provider Physician Assistant Medical; PCP Family Medicine; Visit Provider Family Medicine
DX: M25.551 Pain in right hip (principal); G47.00 Insomnia, unspecified; F43.23 Adjustment disorder with mixed anxiety and depressed mood; G44.309 Post-traumatic headache, unspecified, not intractable; R41.841 Cognitive communication deficit; Z78.9 Other specified health status; M25.552 Pain in left hip; E34.9 Endocrine disorder, unspecified
CPT/HCPCS: 80053; 82533; 82672; 83525; 84403; 84443; 85025

== ENCOUNTER → 2021-03-15 11:04 | Outpatient (CLI) | payer MEDICARE, MEDICAID, SELFPAY ==
[2021-03-15 19:49] LABS: Cholesterol 245 mg/dL (140-199); HDL Cholesterol 93 mg/dL (40-60); LDL Cholesterol Calculated 137 mg/dL (<100); Triglycerides 74 mg/dL (35-150)
[2021-03-15 19:51] LABS: Hemoglobin A1C% w Est Avg Glu 6.1 % (4.0-6.0)
[2021-03-15 20:06] LABS: Vitamin D 25 Hydroxy (D3) 46.9 ng/mL (30.0-100.0)
[2021-03-15 20:37] LABS: Vitamin B12 731 pg/mL (239-931)
== END ==
PROVIDERS: Family Provider Physician Assistant Medical; PCP Family Medicine; Referring Provider Physician Assistant; Visit Provider Physician Assistant
DX: Z13.220 Encounter for screening for lipoid disorders (principal); R53.83 Other fatigue; R73.09 Other abnormal glucose
CPT/HCPCS: 80061; 82306; 82607; 83036

== ENCOUNTER → 2021-08-31 14:19 | Outpatient (CLI) | payer MEDICARE, MEDICAID, SELFPAY ==
--- NOTE | 2021-08-31 | DI.MG.S_ITS ---
BILATERAL DIGITAL SCREENING MAMMOGRAM 3D/2D WITH CAD: 08/31/2021 CLINICAL: Routine screening. Comparison is made to exams dated: 07/28/2020 mammogram, 04/24/2018 mammogram, and 08/19/2020 mammogram - [facility]. The tissue of both breasts is heterogeneously dense. This may lower the sensitivity of mammography. Current study was also evaluated with a Computer Aided Detection (CAD) system. No significant masses, calcifications, or other findings are seen in either breast. There has been no significant interval change. IMPRESSION: NEGATIVE There is no mammographic evidence of malignancy. A 1 year screening mammogram is recommended. Based on the Tyrer Cuzick model (a risk assessment model) the patient's lifetime risk is 13.5% and her 10 year risk is 3.5%. According to the ACR, ACS, and NCCN guidelines, an annual breast MRI exam along with mammogram is recommended if the patient's lifetime risk is 20% or greater. This exam was interpreted at Station ID: [id number]. NOTE: For mammograms, a report in lay terms will be sent to the patient. Approximately 15% of breast malignancies will not be visualized mammographically. In the management of a palpable breast mass, a negative mammogram must not discourage biopsy of a clinically suspicious lesion. Electronically Signed By: Ben silverio/ami:08/31/2021 18:02:45 letter sent: Normal Exam ACR BI-RADS Category 1: Negative [id number]
== END ==
PROVIDERS: Family Provider Physician Assistant Medical; PCP Family Medicine; Referring Provider Physician Assistant; Visit Provider Physician Assistant
DX: Z12.31 Encounter for screening mammogram for malignant neoplasm of breast (principal)
CPT/HCPCS: 77063; 77067

== ENCOUNTER → 2021-10-23 09:01 | Outpatient (CLI) | payer MEDICARE, MEDICAID, SELFPAY ==
--- NOTE | 2021-10-23 09:05 | DI.MRI.S_ITS ---
PROCEDURE: MR KNEE LT WO CON INDICATIONS: chronic pain, fall/twist 04/2021, failed Physical Therapy TECHNIQUE: Noncontrast sagittal PD fast spin echo and T2 fast spin echo with fat saturation, sagittal 3-D FLASH with fat saturation; coronal T1 spin echo and PD fast spin echo with fat saturation, and axial PD fast spin echo with fat saturation through the knee. COMPARISON: [facility] ([facility]), CR, XR KNEE LT 3V, 04/30/2021, 9:44. FINDINGS: Image quality: Partially degraded by metallic artifact. Menisci: Linear horizontal high signal intensity traverses the inner, middle, and peripheral thirds of the medial meniscal body and posterior horn, demonstrating inferior articular surface extension. Radial tearing of the inner 3rd of the lateral meniscal body is present. Cruciate ligaments: The anterior cruciate ligament graft and posterior cruciate ligaments appear intact. Medial structures: The medial collateral ligament appears intact. Visualized portions of the pes anserinus tendons appear normal. No abnormal bursal fluid. Lateral structures: The lateral collateral ligament, long and short heads of the biceps femoris tendon appear intact. The popliteus tendon appears normal. Iliotibial band appears normal. Anterior structures: The quadriceps and patellar tendons appear intact. Postsurgical thickening of the patellar tendon. Patellar alignment is normal. No femoral trochlear dysplasia or ventral trochlear prominence. No edema in the infrapatellar fat pad. Bones and cartilage: No bone marrow contusions or fractures. Mild tricompartmental periarticular osteophyte formation is present. There is moderate articular cartilage loss diffusely overlying the weight-bearing aspects of the medial femoral condyle and medial tibial plateau. Mild articular cartilage loss diffusely overlies the weight-bearing aspects of the lateral femoral condyle and lateral tibial plateau. Superimposed 8 mm diameter region of full-thickness articular cartilage loss overlies the posterior weight-bearing aspect of the lateral femoral condyle. Severe articular cartilage loss overlies the patellar apex and medial patellar facet. Joint space: There is a small knee joint effusion and a trace Fine's cyst. Normal appearing synovial plicae are incidentally noted. IMPRESSION: 1. Intact ACL graft. 2. Tricompartmental osteoarthritis with associated articular cartilage loss. 3. Medial and lateral meniscal tearing. 4. Knee joint effusion and Fine's cyst. Dictated by: Edna Keohler M.D. on 10/25/2021 at 8:32 Approved by: Edna Koehler M.D. on 10/25/2021 at 8:35
== END ==
PROVIDERS: Family Provider Physician Assistant Medical; PCP Physician Assistant; Referring Provider Physician Assistant; Visit Provider Physician Assistant
DX: S83.282A Other tear of lateral meniscus, current injury, left knee, initial encounter (principal); S83.242A Other tear of medial meniscus, current injury, left knee, initial encounter; M17.12 Unilateral primary osteoarthritis, left knee; M71.22 Synovial cyst of popliteal space [Baker], left knee; M25.462 Effusion, left knee; M25.562 Pain in left knee
CPT/HCPCS: 73721

== ENCOUNTER → 2022-08-01 10:11 | Outpatient (CLI) | payer MEDICARE, MEDICAID, SELFPAY ==
[2022-08-01 20:04] LABS: Add Manual Diff / Slide Review NO; Basophils Absolute Auto 0 /uL (0-100); Eosinophils Absolute Auto 100 /uL (0-450); Eosinophils Percent Auto 1.9 % (2-4); Hematocrit 42.6 % (36-46); Hemoglobin 14.5 g/dL (12.0-16.0); Lymphocytes Absolute Auto 1800 /uL (1100-4500); Mean Corpuscular HGB Conc 34.1 % (30-36); Mean Corpuscular Hemoglobin 31.6 PG (26-34); Mean Corpuscular Volume 92.8 fL (80-100); Monocytes Absolute Auto 400 /uL (0-900); Monocytes Percent Auto 8.8 % (3-14); Neutrophils Absolute Auto 2400 /uL (1500-7000); Neutrophils Percent Auto 50.3 % (50-75); Platelet Count 239 X10^3/uL (150-400); White Blood Cell Count 4.8 X10^3/uL (4.5-11.0)
[2022-08-01 20:22] LABS: Alanine Aminotransferase 30 IU/L (<35); Albumin 4.4 g/dL (3.5-5.0); Albumin Globulin Ratio 1.5 (1.0-2.8); Alkaline Phosphatase 61 U/L (38-126); Aspartate Aminotransferase 30 IU/L (14-36); BUN Creatinine Ratio 22.9 (6-22); Bilirubin Total 0.8 mg/dL (0.2-1.3); Blood Urea Nitrogen 16 mg/dL (7-17); Calcium 9.6 mg/dL (8.4-10.2); Carbon Dioxide 32 mmol/L (22-32); Chloride 102 mmol/L (98-107); Cholesterol 216 mg/dL (140-199); Estimated Glomerular Filt Rate > 60 mL/min (>60); Globulin 2.9 g/dL (1.7-4.1); Glucose 108 mg/dL (70-100); HDL Cholesterol 82 mg/dL (40-60); HEMOLYSIS < 15 (0-50); LDL Cholesterol Calculated 115 mg/dL (<100); Potassium 4.3 mmol/L (3.4-5.1); Sodium 138 mmol/L (137-145); Total Protein 7.3 g/dL (6.3-8.2); Triglycerides 95 mg/dL (35-150)
[2022-08-01 20:47] LABS: TSH w/ Reflex to FT4 1.29 uIU/mL (0.47-4.68)
[2022-08-03 00:41] LABS: x Labcorp Estim. Avg Glu (eAG) 128 mg/dL (.); x Labcorp Hemoglobin A1c 6.1 % (4.8-5.6)
== END ==
PROVIDERS: Family Provider Physician Assistant Medical; PCP Physician Assistant; Visit Provider Family Medicine
DX: R07.9 Chest pain, unspecified (principal); G47.00 Insomnia, unspecified; R41.841 Cognitive communication deficit; E78.2 Mixed hyperlipidemia; R23.2 Flushing; R63.5 Abnormal weight gain; R73.03 Prediabetes
CPT/HCPCS: 80053; 80061; 83036; 84443; 85025

== ENCOUNTER → 2022-09-12 09:35 | Outpatient (CLI) | payer MEDICARE, MEDICAID, SELFPAY ==
[2022-09-12 19:56] LABS: HEMOLYSIS < 15 (0-50); Iron 98 ug/dL (37-170)
[2022-09-12 20:06] LABS: Percent Iron Saturation 28 % (15-50); Total Iron Binding Capacity 351 ug/dL (265-497); Transferrin 243 mg/dL (206-381)
[2022-09-12 20:23] LABS: Cortisol AM (Before 10AM) 8.57 ug/dL (4.46-22.7)
[2022-09-12 20:27] LABS: Ferritin 57 ng/mL (11-264)
== END ==
PROVIDERS: Family Provider Physician Assistant Medical; PCP Physician Assistant; Visit Provider Family Medicine
DX: M25.551 Pain in right hip (principal); L81.9 Disorder of pigmentation, unspecified; R53.83 Other fatigue; R63.2 Polyphagia; M25.552 Pain in left hip
CPT/HCPCS: 82533; 82728; 83540; 83550

== ENCOUNTER → 2023-02-22 09:35 | Outpatient (CLI) | payer MEDICARE, MEDICAID, SELFPAY | PROVIDERS: Family Provider Physician Assistant Medical; PCP Physician Assistant Medical; Visit Provider Physician Assistant | DX: L05.91 Pilonidal cyst without abscess (principal) | CPT/HCPCS: 87070; 87075; 87205 ==

== ENCOUNTER 2023-04-13 18:15 | Emergency (ER) | payer MEDICARE, MEDICAID, SELFPAY ==
[2023-04-13 18:17] VITALS: BP 120/73; PULSE 83; RESP 16; TEMP 36.1; O2SAT 98; BMI 27.8
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
--- NOTE | 2023-04-13 18:28 | DI.CT.S_ITS ---
PROCEDURE: CT HEAD/BRAIN WO CON INDICATIONS: severe ARREDONDO worsening over 5 days, prior TBI with head bleed TECHNIQUE: Noncontrast 4.5 mm thick angled axial sections acquired from the foramen magnum to the vertex, with coronal and sagittal reformats. For radiation dose reduction, the following was used: automated exposure control, adjustment of mA and/or kV according to patient size. COMPARISON: None. FINDINGS: Image quality: Mild streak artifact can be seen through the skull base. CSF spaces: Basal cisterns are patent. No extra-axial fluid collections. Ventricles are normal in size and shape. Brain: No midline shift. No intracranial masses or hemorrhage. Salas-white matter interface is normal. Skull and face: Calvarium and visualized facial bones are intact, without suspicious lesions. Sinuses: Visualized sinuses and mastoids are clear. IMPRESSION: No acute intracranial hemorrhage is seen. No acute intracranial pathology. Dictated by: Terry Ontiveros M.D. on 04/13/2023 at 18:13 Approved by: Terry Ontiveros M.D. on 04/13/2023 at 18:14
[2023-04-13] MEDS: SODIUM CHLORIDE 0.9% 1,000 ML 1000 ML IV (19:35)
[2023-04-13 19:40] LABS: Add Manual Diff / Slide Review NO; Basophils Absolute Auto 100 /uL (0-100); Basophils Percent Auto 0.9 % (0-2); Eosinophils Absolute Auto 200 /uL (0-450); Eosinophils Percent Auto 2.2 % (2-4); Hematocrit 43.9 % (36-46); Hemoglobin 14.8 g/dL (12.0-16.0); Lymphocytes Absolute Auto 2800 /uL (1100-4500); Lymphocytes Percent Auto 31.5 % (25-40); Mean Corpuscular HGB Conc 33.8 % (30-36); Mean Corpuscular Hemoglobin 31.1 PG (26-34); Monocytes Absolute Auto 600 /uL (0-900); Monocytes Percent Auto 7.3 % (3-14); Neutrophils Absolute Auto 5100 /uL (1500-7000); Neutrophils Percent Auto 58.1 % (50-75); Platelet Count 304 X10^3/uL (150-400); Red Blood Cell Count 4.77 X10^6/uL (4.0-5.2); Red Cell Distribution Width 15.2 % (11.6-14.8); White Blood Cell Count 8.8 X10^3/uL (4.5-11.0)
[2023-04-13 20:06] LABS: Alanine Aminotransferase 45 IU/L (<35); Albumin 4.7 g/dL (3.5-5.0); Albumin Globulin Ratio 1.3 (1.0-2.8); Alkaline Phosphatase 79 U/L (38-126); Aspartate Aminotransferase 38 IU/L (14-36); BUN Creatinine Ratio 18.9 (6-22); Bilirubin Total 0.5 mg/dL (0.2-1.3); Blood Urea Nitrogen 20 mg/dL (7-17); Calcium 9.8 mg/dL (8.4-10.2); Carbon Dioxide 28 mmol/L (22-32); Chloride 102 mmol/L (98-107); Estimated Glomerular Filt Rate > 60 mL/min (>60); Globulin 3.5 g/dL (1.7-4.1); Glucose 107 mg/dL (70-100); HEMOLYSIS 30 (0-50); Sodium 140 mmol/L (137-145); Total Protein 8.2 g/dL (6.3-8.2)
[2023-04-13 21:05] VITALS: BP 124/64; PULSE 65; RESP 16; O2SAT 100
== END 2023-04-13 21:05 | disposition home or self-care (01) ==
PROVIDERS: Emergency Provider Emergency Medicine; Family Provider Physician Assistant Medical; PCP Physician Assistant Medical
DX: R51.9 Headache, unspecified (principal); Z87.820 Personal history of traumatic brain injury
CPT/HCPCS: 70450; 80053; 81003; 85025; 99283; 99284

== ENCOUNTER → 2023-07-12 12:51 | Outpatient (CLI) | payer MEDICARE, MEDICAID, SELFPAY ==
--- NOTE | 2023-07-12 12:53 | DI.CT.S_ITS ---
PROCEDURE: CT HIP RIGHT WITHOUT CON INDICATIONS: R/O DAMAGE TO ACETABULAR SOCKET/COMPONENT TECHNIQUE: Noncontrast 3 mm axial sections acquired through the bony pelvis. Additional 3 mm axial sections acquired through the symptomatic hip joint, with coronal and sagittal reformats. COMPARISON: None. FINDINGS: Image quality: Diagnostic. Beam hardening artifacts from right hip prosthesis are seen. Bones: Patient is status post prior right hip arthroplasty as well as extensive internal fixation of right acetabulum and fusion of right sacroiliac joint. Significant beam hardening artifacts are noted from surgical hardware. No evidence of hardware loosening or failure. There is partial bony fusion at right sacroiliac joint adjacent to the fixation screw. Partial bony union in right acetabular/iliac bone fracture sites are seen. No acute fracture or dislocation. No suspicious intraosseous lesions. Osteoarthritic changes are noted in symphysis pubis. No suspicious bony lesions. Soft tissues: There is no significant joint effusion or calcified intra-articular loose bodies. No soft tissue mass . Fluid distension involving right trochanteric bursa is seen concerning for bursitis. No other fluid collection. No abnormal soft tissue calcifications. No pelvic free fluid or free air. IMPRESSION: 1. Extensive postsurgical changes in right hemipelvis as described in detail above. No evidence of hardware loosening or failure. No definite fracture of the acetabular socket is seen. 2. No acute fracture or dislocation. Osteoarthritic changes in bony pelvis as above. No suspicious bony lesions. 3. Significant amount of fluid distending right trochanteric bursa concerning for bursitis. No abnormal soft tissue calcifications. No peritoneal free fluid or free air. No soft tissue mass. Dictated by: Brady Silveira M.D. on 07/12/2023 at 16:24 Approved by: Brady Silveira M.D. on 07/12/2023 at 16:41
== END ==
PROVIDERS: Family Provider Physician Assistant Medical; PCP Family Medicine; Referring Provider Orthopaedic Surgery; Visit Provider Orthopaedic Surgery
DX: S73.004D Unspecified dislocation of right hip, subsequent encounter (principal); X58.XXXD Exposure to other specified factors, subsequent encounter; Z96.641 Presence of right artificial hip joint; Z98.1 Arthrodesis status
CPT/HCPCS: 73700

== ENCOUNTER → 2023-08-03 08:50 | Outpatient (CLI) | payer MEDICARE, MEDICAID, SELFPAY ==
--- NOTE | 2023-08-03 08:51 | DI.MRI.S_ITS ---
PROCEDURE: MR HIP RT WO CON INDICATIONS: right hip dislocation history TECHNIQUE: Noncontrast coronal T1 spin echo and STIR through the bony pelvis. Coronal and axial T2 fast spin echo with fat saturation, sagittal T1 spin echo, and oblique axial T2 fast spin echo with fat saturation through the hip. COMPARISON: [facility], CT, CT HIP RIGHT WITHOUT CON, 07/12/2023, 13:01. FINDINGS: Image quality: Excellent. Bones and joints: There is prior right hip arthroplasty with significant susceptibility artifacts. There is no gross marrow edema. No acute fracture or dislocation. Postsurgical changes also seen in right hemipelvis without gross marrow edema or fracture. Right hip alignment is anatomic. Tendons and ligaments: Distal right gluteus medius and minimus tendinosis at their insertions on greater trochanter is seen. The nearby proximal iliotibial band also appears intact. The iliopsoas tendon appears intact, without adjacent bursal fluid collections or evidence for impingement syndrome. Tendinosis involving right hamstring tendon origins at ischial tuberosity is noted. There is suggestion of significant fluid distension of right trochanteric bursa and appears to be communicating with posterior aspect of right hip joint. No intra-articular loose body is seen. Labrum and cartilage: Not applicable. Soft tissues: Visualized muscles demonstrate normal bulk and internal signal. Quadratus femoris muscle demonstrates no internal edema to suggest ischiofemoral impingement. The proximal sciatic neurovascular bundle appears normal adjacent to the hamstring tendons. No free pelvic fluid. Bladder wall thickness is normal. Genitourinary structures and bowel loops appear normal where visualized. IMPRESSION: 1. Postsurgical changes from prior right total hip arthroplasty and fusion of right sacroiliac joint with susceptibility artifacts. No gross marrow edema. No fracture or dislocation. No displaced surgical hardware is seen. 2. Distal right gluteus medius and minimus tendinosis. Tendinosis involving right hamstring tendon origin at ischial tuberosity. 3. Moderate to large amount of fluid distending trochanteric bursa and appears to be communicating with right hip joint concerning for bursitis. Moderate to large right hip joint effusion posteriorly. No intra-articular loose bodies. Dictated by: Brady Silveira M.D. on 08/03/2023 at 14:22 Approved by: Brady Silveira M.D. on 08/03/2023 at 14:34
== END ==
PROVIDERS: Family Provider Physician Assistant Medical; PCP Family Medicine; Referring Provider Family Medicine; Visit Provider Family Medicine
DX: S73.004S Unspecified dislocation of right hip, sequela (principal); M67.853 Other specified disorders of tendon, right hip; M25.451 Effusion, right hip; Z96.641 Presence of right artificial hip joint
CPT/HCPCS: 73721

== ENCOUNTER → 2023-10-18 16:10 | Outpatient (CLI) | payer MEDICARE, MEDICAID, SELFPAY ==
--- NOTE | 2023-10-18 16:11 | DI.MG.S_ITS ---
BILATERAL DIGITAL SCREENING MAMMOGRAM 3D/2D WITH CAD: 10/18/2023 CLINICAL: Routine screening. Comparison is made to exams dated: 08/31/2021 mammogram, 07/28/2020 mammogram, and 04/24/2018 mammogram - [facility]. Both breasts are heterogeneously dense, which may obscure small masses (category c / 51-75% glandular tissue). Current study was also evaluated with a Computer Aided Detection (CAD) system. No significant masses, calcifications, or other findings are seen in either breast. There has been no significant interval change. IMPRESSION: NEGATIVE There is no mammographic evidence of malignancy. A 1 year screening mammogram is recommended. Based on the Tyrer Cuzick model (a risk assessment model) the patient's lifetime risk is 13.3% and her 10 year risk is 3.9%. According to the ACR, ACS, and NCCN guidelines, an annual breast MRI exam along with mammogram is recommended if the patient's lifetime risk is 20% or greater. This exam was interpreted at Station ID: [id number]. NOTE: For mammograms, a report in lay terms will be sent to the patient. Approximately 15% of breast malignancies will not be visualized mammographically. In the management of a palpable breast mass, a negative mammogram must not discourage biopsy of a clinically suspicious lesion. Electronically Signed By: Ben silverio/ami:10/24/2023 10:01:41 letter sent: Normal Exam ACR BI-RADS Category 1: Negative [id number]
== END ==
LOC: MAMMO 16:11
PROVIDERS: Family Provider Physician Assistant Medical; PCP Family Medicine; Referring Provider Nurse Practitioner Adult Health; Visit Provider Nurse Practitioner Adult Health
DX: Z12.31 Encounter for screening mammogram for malignant neoplasm of breast (principal); R92.333 Mammographic heterogeneous density, bilateral breasts
CPT/HCPCS: 77063; 77067

== ENCOUNTER → 2023-11-02 13:29 | Outpatient (CLI) | payer MEDICARE, MEDICAID, SELFPAY ==
[2023-11-02 20:53] LABS: Alanine Aminotransferase 34 IU/L (<35); Albumin 4.2 g/dL (3.5-5.0); Albumin Globulin Ratio 1.4 (1.0-2.8); Alkaline Phosphatase 70 U/L (38-126); Aspartate Aminotransferase 39 IU/L (14-36); BUN Creatinine Ratio 31.3 (6-22); Bilirubin Total 0.5 mg/dL (0.2-1.3); Blood Urea Nitrogen 20 mg/dL (7-17); Calcium 9.7 mg/dL (8.4-10.2); Carbon Dioxide 26 mmol/L (22-32); Chloride 104 mmol/L (98-107); Estimated Glomerular Filt Rate > 60 mL/min (>60); Globulin 2.9 g/dL (1.7-4.1); Glucose 92 mg/dL (70-100); HEMOLYSIS < 15 (0-50); Potassium 4.2 mmol/L (3.4-5.1); Sodium 136 mmol/L (137-145); Total Protein 7.1 g/dL (6.3-8.2)
[2023-11-02 20:56] LABS: Hemoglobin A1C% w Est Avg Glu 5.8 % (4.0-6.0)
[2023-11-02 21:05] LABS: Follicle Stimulating Hormone 76.6 mIU/mL
[2023-11-02 21:20] LABS: TSH w/ Reflex to FT4 1.91 uIU/mL (0.47-4.68)
[2023-11-02 21:21] LABS: Estradiol, Total 22.4 pg/mL
== END ==
PROVIDERS: Family Provider Physician Assistant Medical; PCP Family Medicine; Visit Provider Nurse Practitioner Adult Health
DX: R73.03 Prediabetes (principal); G47.00 Insomnia, unspecified; E34.9 Endocrine disorder, unspecified; R79.89 Other specified abnormal findings of blood chemistry
CPT/HCPCS: 80053; 82397; 82670; 83001; 83036; 84443

== ENCOUNTER 2024-04-25 06:48 | Emergency (ER) | payer MEDICARE, MEDICAID, SELFPAY ==
[2024-04-25] VITALS (56 sets, daily range): BP systolic 95–157; BP diastolic 56–94; PULSE 50–100; RESP 10–34; TEMP 36.6–36.8; O2SAT 94–100; BMI 27.3
--- NOTE | 2024-04-25 06:53 | DI.RAD.S_ITS ---
PROCEDURE: XR HIP W PEL IF DONE RT 2V INDICATIONS: dislocation TECHNIQUE: AP pelvis with lateral view(s) of the right hip(s). COMPARISON: None. FINDINGS: Bones: Dislocated right hip arthroplasty. Right acetabular cup has a mildly vertical configuration. Orthopedic surgical hardware from previous right pelvic ORIF. Pelvic ring appears intact. No suspicious bony lesions. Soft tissues: The visualized bowel gas pattern is normal. No suspicious soft tissue calcifications. IMPRESSION: Dislocated right hip arthroplasty. No acute fractures identified. Dictated by: Raymond Howard M.D. on 04/25/2024 at 7:45 Approved by: Raymond Howard M.D. on 04/25/2024 at 7:46
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
[2024-04-25] MEDS: ACETAMINOPHEN IV 1,000 MG/100 ML VIAL 400 MG IV (08:55)
[2024-04-25] MEDS: propofoL 200 MG/20 ML VIAL 80 MG IV (09:41)
[2024-04-25] MEDS: METOCLOPRAMIDE 10 MG/2 ML INJ IV (09:45)
[2024-04-25] MEDS: diphenhydrAMINE 50 MG/ML VIAL 25 MG IV (09:51)
[2024-04-25] MEDS: PROCHLORPERAZINE 10 MG/2 ML VIAL IV (10:17)
--- NOTE | 2024-04-25 11:13 | DI.RAD.S_ITS ---
PROCEDURE: XR PELVIS 1-2V INDICATIONS: post hip reduction TECHNIQUE: 1 view(s) of the pelvis acquired. COMPARISON: [facility], CR, XR HIP W PEL IF DONE RT 2V, 04/25/2024, 7:08. FINDINGS: Bones: Dislocated right hip prosthesis has been reduced. Stable right hip arthroplasty postsurgical changes, right acetabular fixation hardware and right SI joint arthrodesis screw. No acute fractures or dislocations. No suspicious bony lesions. Soft tissues: Visualized bowel gas pattern is normal. No suspicious soft tissue calcifications. IMPRESSION: Successful reduction of right hip prosthesis dislocation. Dictated by: Heather Barrera MD, PhD on 04/25/2024 at 11:29 Approved by: Heather Barrera MD, PhD on 04/25/2024 at 11:30
--- NOTE | 2024-04-25 11:20 | PC.NURSE ---
Dr. Crawford, anesthesiology, 2x RN's and a FACILITY OPERATIONS MANAGER at bedside for procedural sedation and right hip reduction. Pt tolerated procedure well and hip relocated immediately after sedation. XR at bedside for pelvis xr confirmation. Dr. Crawford confirms hip relocation. PT on 3L NC with OPA placed during procedure.
== END 2024-04-25 14:05 | disposition home or self-care (01) ==
PROVIDERS: Emergency Provider Emergency Medicine; Family Provider Physician Assistant Medical; PCP Family Medicine
DX: T84.020A Dislocation of internal right hip prosthesis, initial encounter (principal); Y79.2 Prosthetic and other implants, materials and accessory orthopedic devices associated with adverse incidents
CPT/HCPCS: 27265; 29530; 72170; 73502; 96365; 96375; 99152; 99153; 99285; J0131; J0780; J1200; J2704; J2765

== ENCOUNTER → 2024-06-11 08:54 | Outpatient (CLI) | payer MEDICARE, MEDICAID, SELFPAY | LOC: LAB 08:54 | PROVIDERS: Family Provider Physician Assistant Medical; PCP Family Medicine; Visit Provider Physician Assistant | DX: J02.9 Acute pharyngitis, unspecified (principal) | CPT/HCPCS: 87070 ==

== ENCOUNTER → 2024-09-17 13:35 | Outpatient (CLI) | payer MEDICARE, MEDICAID, SELFPAY ==
[2024-09-17 19:20] LABS: Add Manual Diff / Slide Review NO; Hematocrit 43.4 % (36-46); Hemoglobin 15.1 g/dL (12.0-16.0); Lymphocytes Absolute Auto 2000 /uL (1100-4500); Mean Corpuscular HGB Conc 34.7 % (30-36); Mean Corpuscular Hemoglobin 32.4 PG (26-34); Mean Corpuscular Volume 93.3 fL (80-100); Platelet Count 263 X10^3/uL (150-400)
[2024-09-17 19:59] LABS: Blood Urea Nitrogen 15 mg/dL (7-17); Calcium 10.0 mg/dL (8.4-10.2); Carbon Dioxide 30 mmol/L (22-32); Chloride 104 mmol/L (98-107); Estimated Glomerular Filt Rate > 60 mL/min (>60); Glucose 98 mg/dL (70-99); HEMOLYSIS 16 (0-50); Potassium 4.1 mmol/L (3.4-5.1); Sodium 140 mmol/L (137-145)
== END ==
PROVIDERS: PCP Family Medicine
DX: T84.020A Dislocation of internal right hip prosthesis, initial encounter (principal); R53.81 Other malaise; Z87.820 Personal history of traumatic brain injury; R79.89 Other specified abnormal findings of blood chemistry; R53.82 Chronic fatigue, unspecified; R59.0 Localized enlarged lymph nodes; E78.2 Mixed hyperlipidemia
CPT/HCPCS: 80048; 82495; 83018; 85025; 85651; 86140